=== PATIENT | female | born 1985 | race African-American/Black ===

== ENCOUNTER 2017-11-20 17:21 | Emergency (ER) | payer OTHER ==
[2017-11-20 17:28] VITALS: BP 107/55; PULSE 88; TEMP 98.1; BMI 19.0
--- NOTE | 2017-11-20 18:02 | PDOC ---
History of Present Illness - General Chief Complaint: Abscess Boil Stated Complaint: VAGINAL CYST 28WKS PREG, NO VAG BLEED Time Seen by Provider: 11/20/17 17:34 History Source: Patient Exam Limitations: No Limitations - History of Present Illness Initial Comments: 11/20/17 17:57 32-year-old female currently 28 weeks presents to the ED with complaints of left labial mass. Patient states has had similar abscesses in the past secondary to shaving but denies shaving recently. Patient has no complaints of fever, vaginal discharge, abdominal pain, or vaginal bleeding. Timing/Duration: getting worse Severity: mild Associated Symptoms: reports: denies symptoms Past History - Past Medical History Allergies/Adverse Reactions: Allergies Allergy/AdvReac Type Severity Reaction Status Date / Time levetiracetam [From [facility]] AdvReac Intermediate Verified 11/20/17 17:27 Home Medications: Ambulatory Orders OXcarbazepine [Trileptal] 200 mg PO BID 08/07/15 Anemia: No Asthma: No Cancer: No Cardiac Disorders: No CVA: No COPD: No CHF: No Dementia: No Diabetes: No GI Disorders: No Disorders: No HTN: No Hypercholesterolemia: No Liver Disease: No Seizures: Yes Thyroid Disease: No - Surgical History Abdominal Surgery: No Appendectomy: No Cardiac Surgery: No - Reproductive History (#): 3 Para: 2 Cervical CA: No Dysfunctional Uterine Bleeding: No Ectopic : No Endometrial CA: No Polycystic Ovaries: No Therapeutic (s) & number: No Tubal Ligation: No Spontaneous : 0 - Immunization History Immunization Up to Date: Yes - Suicide/Smoking/Psychosocial Hx Smoking Status: No Smoking History: Never smoked Number of Cigarettes Smoked Daily: 0 Information on smoking cessation initiated: No Hx Alcohol Use: No Drug/Substance Use Hx: No Substance Use Type: Alcohol Hx Substance Use Treatment: No Patient Lives Alone: No Lives with/in: spouse/SO Review of Systems - Review of Systems Able to Perform ROS?: Yes Constitutional: No: Symptoms Reported Musculoskeletal: No: Symptoms Reported Integumentary: Yes: Lumps *Physical Exam - Vital Signs Last Vital Signs Temp Pulse Resp BP Pulse Ox 98.1 F 88 18 107/55 97 11/20/17 17:24 11/20/17 17:24 11/20/17 17:24 11/20/17 17:24 11/20/17 17:24 - Physical Exam General Appearance: Yes: Nourished, Appropriately Dressed. No: Apparent Distress Female Pelvic Exam: positive: other (noted fluctuant tender left labial abscess) . negative: discharge, vaginal bleeding Gastrointestinal/Abdominal: negative: Tenderness Procedures - Incision and Drainage I&D Site: Left: Other Betadine cleansed: Yes Anesthesia: 1% Lidocaine Blade Size: 11 Attempts: 1 Plain Packing: No Complications: none Progress: 11/20/17 18:05 Patient drained a approximately 5 mL of purulent drainage without manual expression. Patient drained approximately 2 mL of purulent drainage with expression. Medical Decision Making - Medical Decision Making 11/20/17 18:04 Patient here for left labial abscess. Patient had incision and drainage done without difficulty using an 11 blade. Wound culture was collected. Patient to return in 72 hours for wound check or sooner if symptoms worsen. Patient also given supportive care instructions on discharge *DC/Admit/Observation/Transfer Diagnosis at time of Disposition: Abscess of labia - Discharge Dispostion Disposition: HOME Condition at time of disposition: Good - Referrals Referrals: Pauline Ku MD [Primary Care Provider] - - Patient Instructions Printed Discharge Instructions: DI for Incision and Drainage of a Skin Abscess Additional Instructions: Please apply warm soaks to the affected area 4 times a day 15 minutes. Please return here in 72 hours for wound check or sooner if symptoms worsen prior to your follow-up. - Post Discharge Activity
--- NOTE | 2017-11-23 07:46 | PDOC ---
Patient Follow-up (Call Back) - Post ED Follow - Up Condition at time of discharge: Good Disposition at time of original discharge: HOME Reason for Call Back: Abnwl. Microbiology (Preliminary wound culture shows lactose fermenting negative bacilli quantity very rare, organism to staphylococcal species quantity rare and group D strep or enterococcus quantity rare. Patient currently 28 weeks and on Trileptal for seizure. Patient on no antibiotics and will await final report.)
--- NOTE | 2017-11-24 10:25 | PDOC ---
Patient Follow-up (Call Back) - Post ED Follow - Up Condition at time of discharge: Good Disposition at time of original discharge: HOME Reason for Call Back: Abnwl. Microbiology (+ucx sen to keflex, bactrim and levaquin, macrobid not inclued on sensitivity Pt >28 weeks and not on abx Called number on chart but phone rings without answer)
== END 2017-11-20 18:39 | disposition home or self-care (01) ==
LOC: JERFT 17:21
PROC: 0U9M0ZZ Drainage of Vulva, Open Approach (ICD-10-PCS; principal; 2017-11-20)
DX: O23.593 Infection of other part of genital tract in pregnancy, third trimester (principal); N76.4 Abscess of vulva; Z3A.28 28 weeks gestation of pregnancy
CPT/HCPCS: 87070; 87186; 87205; 99281-25

== ENCOUNTER 2020-08-23 04:11 | Emergency (ER) | payer OTHER ==
--- NOTE | 2020-08-23 04:18 | PDOC ---
History of Present Illness - General Stated Complaint: FEELING ANXIOUS Time Seen by Provider: 08/23/20 04:17 - History of Present Illness Initial Comments: 08/23/20 04:20 35 year old female with significant past medical history of seizure disorder (noncompliant on Oxacarbazepine). BIBA to the ED with seizure feeling. Earlier of the night, patient felt like she was having a seizure, went to [place] for a visit. There they evaluated her and sent her home with dx of anxiety. Patient d/c home; however, she didn't felt any better, had numbness on the extremities, called 911. That's why she is here. On the way to [facility], vital sign was 140/90 to 110/80s, SpO2 of 100 on Nasal canula oxygen, hemodynamically stable the entire time. At the ED, patient denies chest pain, lightheadedness, nausea, vomiting, abd ominal pain. She did have a couple episode of involuntary legs shaking lasting about 30 seconds. Allergies: levetiracetam Social History: No alcohol, tobacco, or drug use reported. PCP: Dr. Cl [place] GENERAL/CONSTITUTIONAL: No fever or chills. No weakness. HEAD, EYES, EARS, NOSE AND THROAT: No change in vision. No ear pain or discharge. No sore throat. CARDIOVASCULAR: No chest pain or shortness of breath RESPIRATORY: No cough, wheezing, or hemoptysis. GASTROINTESTINAL: No nausea, vomiting, diarrhea or constipation. GENITOURINARY: No dysuria, frequency, or change in urination. MUSCULOSKELETAL: No joint or muscle swelling or pain. No neck or back pain. SKIN: No rash NEUROLOGIC: No headache, vertigo, loss of consciousness, or change in strength/sensation. ENDOCRINE: No increased thirst. No abnormal weight change HEMATOLOGIC/LYMPHATIC: No anemia, easy bleeding, or history of blood clots. ALLERGIC/IMMUNOLOGIC: No hives or skin allergy. PE GENERAL: Awake, alert, and fully oriented, in no acute distress, flat effect. HEAD: No signs of trauma, normocephalic, atraumatic EYES: PERRLA, EOMI, sclera anicteric, conjunctiva clear ENT: Auricles normal inspection, hearing grossly normal, nares patent, oropharynx clear without exudates. Moist mucosa NECK: Normal ROM, supple, no lymphadenopathy, JVD, or masses LUNGS: No distress, speaks full sentences, clear to auscultation bilaterally HEART: Regular rate and rhythm, normal S1 and S2, no murmurs, rubs or gallops, peripheral pulses normal and equal bilaterally. ABDOMEN: Soft, nontender, normoactive bowel sounds. No guarding, no rebound. No masses EXTREMITIES : Normal inspection, Normal range of motion, no edema. No clubbing or cyanosis. NEUROLOGICAL: Cranial nerves II through XII grossly intact. Normal speech, nor mal gait, no focal sensorimotor deficits SKIN: Warm, Dry, normal turgor, no rashes or lesions noted 08/23/20 04:29 08/23/20 04:38 Past History - Medical History Allergies/Adverse Reactions: Allergies Allergy/AdvReac Type Severity Reaction Status Date / Time levetiracetam [From [facility] [place]] AdvReac Intermediate Verified 08/23/20 04:20 Home Medications: Ambulatory Orders OXcarbazepine [Trileptal] 200 mg PO BID 08/07/15 Anemia: No Asthma: No Cancer: No Cardiac Disorders: No CVA: No COPD: No CHF: No Dementia: No Diabetes: No GI Disorders: No Disorders: No HTN: No Hypercholesterolemia: No Liver Disease: No Seizures: Yes Thyroid Disease: No - Surgical History Abdominal Surgery: No Appendectomy: No Cardiac Surgery: No - Reproductive History (#): 3 Para: 2 Cervical CA: No Dysfunctional Uterine Bleeding: No Ectopic : No Endometrial CA: No Polycystic Ovaries: No Therapeutic (s) & number: No Tubal Ligation: No Spontaneous : 0 - Immunization History Immunization Up to Date: Yes - Psycho-Social/Smoking History Smoking Status: No Smoking History: Never smoked Number of Cigarettes Smoked Daily: 0 ED Treatment Course - LABORATORY CBC & Chemistry Diagram: 08/23/20 05:00 08/23/20 05:00 Medical Decision Making - Medical Decision Making 08/23/20 04:47 35F with hx of seizure (noncompliant to trileptal) presented here with anxiety issue and numbness of the extremities. Will do basic lab work, test Will give one dose of trileptal 08/23/20 05:58 EKG showed sinus rhtym with premature supraventricular complex, vent rate 79, QTc 405. 08/23/20 06:49 Blood work came back unremarkable. Stable to discharge and follow up with PCP and neurologist. Discharge - Discharge Information Problems reviewed: Yes Clinical Impression/Diagnosis: Pseudoseizure, Anxiety Condition: Good Disposition: HOME - Follow up/Referral Referrals: Pauline Ku MD [Primary Care Provider] - Zeferino Villarreal MD [Staff Physician] - - Patient Discharge Instructions Patient Printed Discharge Instructions: DI for Psychogenic Nonepileptic Seizure s Additional Instructions: You were seen in the ED for complaints of numbness and anxiety In the ED you were evaluated with bloodwork and physical exam. Your results were negative There does not appear to be an acute need for immediate hospitalization. You are advised to follow up with your Primary Care Physician and neurologist within 1 week. You were given a referral to see a neurologist Please continue to take your trileptal medication. Return to the ED immediately if you experience worsening headache, seizure, or new symptoms. - Post Discharge Activity
[2020-08-23 04:24] VITALS: BMI 20.9
[2020-08-23] MEDS ORDERED: OXcarbazepine 300 MG/5 ML UNIT DOSE CUPS PO ONE (04:47)
--- OUTSIDE RECORDS SUMMARY | 2020-08-23 05:10 | XMS ---
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 <content [facility] gravity of 5 styleCode="Jj Womacks Urine by Test d">Urine Medical strip Specific Center [place] </content>1.02 5 <content styleCode="Ginny lics"> (1.015-1.025 )</content> Hemoglobin NEGATIVE <content [facility] [Presence] in styleCode="Jj Izaguirre Urine by Test d">Urine Blood Medical strip </content>NEGA Center TIVE <content styleCode="Ginny lics"> (NEGATIVE )</content> Protein NEGATIVE <content [facility] [Mass/volume] styleCode="Jj Womacks in Urine by d">Urine Medical Test strip Protein Center </content>TRAC E MG/DL<content styleCode="Ginny lics"> (NEGATIVE MG/DL)</conten t> UNK 0-3 <content Saint styleCode="Jj Zina d">Urine Red Medical Blood Cell Center </content>0-3 HPF<content styleCode="Ginny lics"> (0-3 HPF)</content> UNK 0-3 <content Saint styleCode="Jj Zina d">Urine White Medical Blood Cell Center </content>0-3 HPF<content styleCode="Ginny lics"> (0-3 HPF)</content> Urobilinogen 0.2-1.0 <content [facility] [Units/volume] styleCode="Jj Izaguirre in Urine by d">Urine Medical Test strip Urobilinogen Center </content>0.2 MG/DL<content styleCode="Ginny lics"> (0.2-1.0 MG/DL)</conten t> Leukocyte NEGATIVE <content [facility] esterase styleCode="Jj Womacks [Presence] in d">Urine Medical Urine by Test Leukocyte Center strip </content>NEGA TIVE <content styleCode="Ginny lics"> (NEGATIVE )</content> Nitrite NEGATIVE <content [facility] [Presence] in styleCode="Jj Womacks Urine by Test d">Urine Medical strip Nitrite Center </content>NEGA TIVE <content styleCode="Ginny lics"> (NEGATIVE )</content> UNK NEGATIVE <content Saint styleCode="Jj Zina d">Urine Medical Bacteria Center </content>FEW HPF<content styleCode="Ginny lics"> (NEGATIVE HPF)</content> UNK NONE SEEN <content Saint styleCode="Jj Zina d">Epithelial Medical Cell Center </content>2-5 HPF<content styleCode="Ginny lics"> (NONE SEEN HPF)</content> ID Date Data Source CHMROUTINECCDA.[id number] 11/13/2019 06:50:00 AM [facility] -0500 Name Value Range Interpretation Description Data Sup porting Code Source(s) Document(s ) Cannabinoids <content [facility] [Presence] in styleCode="Jj Izaguirre Urine by Screen d">Cannabinoid Medical method >50 ng/mL s Center </content>NEGA TIVE NG/ML (Reference Range: not available)<br/ > ID Date Data Source HematologyRou.[id number] 11/13/2019 06:25:00 AM [facility] 0500 Name Value Range Interpretation Description Data Sup porting Code Source(s) Document(s ) Hematocrit 36.0-46. Below low normal <content Saint [Volume 0 styleCode="Bold Zina Fraction] of ">Hematocrit Medical Blood by </content>31.2 Center Automated count % L<content styleCode="Ital ics"> (36.0-46.0 %)</content> Erythrocyte mean 80.0-100 <content [facility] corpuscular .0 styleCode="Bold Zina volume [Entitic ">Mean Medical volume] by Corpuscular Center Automated count Volume </content>85.7 FL<content styleCode="Ital ics"> (80.0-100.0 FL)</content> Hemoglobin 12.3-16. Below low normal <content [facility] [Mass/volume] in 0 styleCode="Bold Zina Blood ">Hemoglobin Medical </content>9.8 Center G/DL L<content styleCode="Ital ics"> (12.3-16.0 G/DL)</content> Leukocytes 4.4-11.0 Below low normal <content [facility] [#/volume] in styleCode="Bold Zina Blood by ">White Blood Medical Automated count Cell Count Center </content>4.19 KCUMM L<content styleCode="Ital ics"> (4.4-11.0 KCUMM)</content > Erythrocytes 4.0-5.1 Below low normal <content [facility] [#/volume] in styleCode="Bold Zina Blood by ">Red Blood Medical Automated count Cell Count Center </content>3.64 MCUMM L<content styleCode="Ital ics"> (4.0-5.1 MCUMM)</content > Platelet mean 8.0-11.0 <content [facility] volume [Entitic styleCode="Bold Zina volume] in Blood ">Mean Platelet Medical by Automated Volume Center count </content>10.2 FL<content styleCode="Ital ics"> (8.0-11.0 FL)</content> Erythrocyte mean 26.0-34. <content [facility] corpuscular 0 styleCode="Bold Zina hemoglobin ">Mean Medical [Entitic mass] Corposcular Center by Automated Hemoglobin count </content>26.9 PG<content styleCode="Ital ics"> (26.0-34.0 PG)</content> Platelets 130-400 <content [facility] [#/volume] in styleCode="Bold Zina Blood by ">Platelet Medical Automated count Count Center </content>266 KCUMM<content styleCode="Ital ics"> (130-400 KCUMM)</content > Erythrocyte 11.5-14. Above high <content [facility] distribution 5 normal styleCode="Bold Zina width [Ratio] by ">Red Cell Medical Automated count Distribution Center Width </content>15.9 % H<content styleCode="Ital ics"> (11.5-14.5 %)</content> Erythrocyte mean 32.0-37. Below low normal <content [facility] corpuscular 0 styleCode="Bold Zina hemoglobin ">Mean Corpus. Medical concentration Hgb Center [Mass/volume] by Concentration Automated count (MCHC) </content>31.4 G/DL L<content styleCode="Ital ics"> (32.0-37.0 G/DL)</content> UNK 0 <content Saint styleCode="Bold Zina ">Nucleated Red Medical Blood Cell Center </content>0.0 /100<content styleCode="Ital ics"> (0 /100)</content> UNK 0.0 <content Saint styleCode="Bold Zina ">Nucleated Red Medical Blood Cell Center Count </content>0.00 KCUMM<content styleCode="Ital ics"> (0.0 KCUMM)</content > ID Date Data Source GFR(Creatinine).[id number] 11/13/2019 06:25:00 AM AUDI [facility] 0-0500 Name Value Range Interpretation Code Description Data Yesica rce(s) Supporting Document(s ) UNK > 60 <content [facility] styleCode="Bold"> Medical Cent er EGFR </content>149 GFR<content styleCode="Italic s"> (> 60 GFR)</content> ID Date Data Source BMP.[id number] 11/13/2019 06:25:00 AM EST [facility] Name Value Range Interpretation Description Data Sup porting Code Source(s) Document(s ) Potassium 3.5-5.3 <content [facility] [Moles/volume] styleCode="Jj Zina in Serum or d">Potassium Medical Plasma </content>4.2 Center MEQ/L<content styleCode="Ginny lics"> (3.5-5.3 MEQ/L)</conten t> Sodium 137-145 <content [facility] [Moles/volume] styleCode="Jj Zina in Serum or d">Sodium Medical Plasma </content>137 Center MEQ/L<content styleCode="Ginny lics"> (137-145 MEQ/L)</conten t> Chloride 98-107 <content [facility] [Moles/volume] styleCode="Jj Zina in Serum or d">Chloride Medical Plasma </content>101 Center MEQ/L<content styleCode="Ginny lics"> (98-107 MEQ/L)</conten t> UNK 7-17 <content Saint styleCode="Jj Zina d">BUN Medical </content>13 Center MG/DL<content styleCode="Ginny lics"> (7-17 MG/DL)</conten t> Creatinine 0.5-1.3 <content [facility] [Mass/volume] styleCode="Jj Zina in Serum or d">Creatinine Medical Plasma </content>0.6 Center MG/DL<content styleCode="Ginny lics"> (0.5-1.3 MG/DL)</conten t> Glucose 74-106 <content [facility] [Mass/volume] styleCode="Jj Zina in Serum or d">Glucose Medical Plasma </content>102 Center MG/DL<content styleCode="Ginny lics"> (74-106 MG/DL)</conten t> Calcium 8.4-10.2 <content [facility] [Mass/volume] styleCode="Jj Zina in Serum or d">Calcium Medical Plasma </content>10.1 Center MG/DL<content styleCode="Ginny lics"> (8.4-10.2 MG/DL)</conten t> Carbon 22-30 <content [facility] dioxide, total styleCode="Jj Zina [Moles/volume] d">Carbon Medical in Serum or Dioxide Center Plasma </content>28 MEQ/L<content styleCode="Ginny lics"> (22-30 MEQ/L)</conten t> UNK > 60 <content [facility] styleCode="Jj Zina d">EGFR Medical </content>149 Center GFR<content styleCode="Ginny lics"> (> 60 GFR)</content> ID Date Data Source HematologyRou.[id number] 10/25/2019 04:55:00 AM AUDI [facility] 0500 Name Value Range Interpretation Description Data Sup porting Code Source(s) Document(s ) Leukocytes 4.4-11.0 <content [facility] [#/volume] in styleCode="Bold Zina Blood by ">White Blood Medical Automated count Cell Count Center </content>5.77 KCUMM<content styleCode="Ital ics"> (4.4-11.0 KCUMM)</content > Erythrocytes 4.0-5.1 <content [facility] [#/volume] in styleCode="Bold Zina Blood by ">Red Blood Medical Automated count Cell Count Center </content>4.21 MCUMM<content styleCode="Ital ics"> (4.0-5.1 MCUMM)</content > Hemoglobin 12.3-16. Below low normal <content [facility] [Mass/volume] in 0 styleCode="Bold Zina Blood ">Hemoglobin Medical </content>11.3 Center G/DL L<content styleCode="Ital ics"> (12.3-16.0 G/DL)</content> Hematocrit 36.0-46. <content [facility] [Volume 0 styleCode="Bold Zina Fraction] of ">Hematocrit Medical Blood by </content>36.7 Center Automated count %<content styleCode="Ital ics"> (36.0-46.0 %)</content> Erythrocyte mean 32.0-37. Below low normal <content [facility] corpuscular 0 styleCode="Bold Zina hemoglobin ">Mean Corpus. Medical concentration Hgb Center [Mass/volume] by Concentration Automated count (MCHC) </content>30.8 G/DL L<content styleCode="Ital ics"> (32.0-37.0 G/DL)</content> Erythrocyte mean 26.0-34. <content [facility] corpuscular 0 styleCode="Bold Zina hemoglobin ">Mean Medical [Entitic mass] Corposcular Center by Automated Hemoglobin count </content>26.8 PG<content styleCode="Ital ics"> (26.0-34.0 PG)</content> Erythrocyte 11.5-14. Above high <content [facility] distribution 5 normal styleCode="Bold Zina width [Ratio] by ">Red Cell Medical Automated count Distribution Center Width </content>16.7 % H<content styleCode="Ital ics"> (11.5-14.5 %)</content> Erythrocyte mean 80.0-100 <content [facility] corpuscular .0 styleCode="Bold Zina volume [Entitic ">Mean Medical volume] by Corpuscular Center Automated count Volume </content>87.2 FL<content styleCode="Ital ics"> (80.0-100.0 FL)</content> Platelet mean 8.0-11.0 <content [facility] volume [Entitic styleCode="Bold Zina volume] in Blood ">Mean Platelet Medical by Automated Volume Center count </content>9.6 FL<content styleCode="Ital ics"> (8.0-11.0 FL)</content> UNK 0 <content Saint styleCode="Bold Zina ">Nucleated Red Medical Blood Cell Center </content>0.0 /100<content styleCode="Ital ics"> (0 /100)</content> Platelets 130-400 <content [facility] [#/volume] in styleCode="Bold Zina Blood by ">Platelet Medical Automated count Count Center </content>290 KCUMM<content styleCode="Ital ics"> (130-400 KCUMM)</content > UNK 0.0 <content [facility] styleCode="Bold Zina ">Nucleated Red Medical Blood Cell Center Count </content>0.00 KCUMM<content styleCode="Ital ics"> (0.0 KCUMM)</content > ID Date Data Source GFR(Creatinine).[id number] 10/25/2019 04:55:00 AM EST [facility] 0-0500 Name Value Range Interpretation Code Description Data Yesica rce(s) Supporting Document(s ) UNK > 60 <content [facility] styleCode="Bold"> Medical Cent er EGFR </content>125 GFR<content styleCode="Italic s"> (> 60 GFR)</content> ID Date Data Source [facility].[id number] 10/25/2019 04:55:00 AM EST [facility] Name Value Range Interpretation Description Data Sup porting Code Source(s) Document(s ) Sodium 137-145 <content [facility] [Moles/volume] styleCode="Jj Womacks in Serum or d">Sodium Medical Plasma </content>140 Center MEQ/L<content styleCode="Ginny lics"> (137-145 MEQ/L)</conten t> Carbon 22-30 <content [facility] dioxide, total styleCode="Jj Zina [Moles/volume] d">Carbon Medical in Serum or Dioxide Center Plasma </content>27 MEQ/L<content styleCode="Ginny lics"> (22-30 MEQ/L)</conten t> Chloride 98-107 <content [facility] [Moles/volume] styleCode="Jj Zina in Serum or d">Chloride Medical Plasma </content>102 Center MEQ/L<content styleCode="Ginny lics"> (98-107 MEQ/L)</conten t> Potassium 3.5-5.3 <content [facility] [Moles/volume] styleCode="Jj Zina in Serum or d">Potassium Medical Plasma </content>4.5 Center MEQ/L<content styleCode="Ginny lics"> (3.5-5.3 MEQ/L)</conten t> Creatinine 0.5-1.3 <content [facility] [Mass/volume] styleCode="Jj Zina in Serum or d">Creatinine Medical Plasma </content>0.7 Center MG/DL<content styleCode="Ginny lics"> (0.5-1.3 MG/DL)</conten t> Glucose 74-106 Above high normal <content [facility] [Mass/volume] styleCode="Jj Izaguirre in Serum or d">Glucose Medical Plasma </content>109 Center MG/DL H<content styleCode="Ginny lics"> (74-106 MG/DL)</conten t> UNK 7-17 <content Saint styleCode="Jj Izaguirre d">BUN Medical </content>15 Center MG/DL<content styleCode="Ginny lics"> (7-17 MG/DL)</conten t> UNK > 60 <content Saint styleCode="Jj Womacks d">EGFR Medical </content>125 Center GFR<content styleCode="Ginny lics"> (> 60 GFR)</content> Calcium 8.4-10.2 Above high normal <content [facility] [Mass/volume] styleCode="Jj Izaguirre in Serum or d">Calcium Medical Plasma </content>10.6 Center MG/DL H<content styleCode="Ginny lics"> (8.4-10.2 MG/DL)</conten t> ID Date Data Source MROUTINECCDA.[id number] 10/08/2019 03:00:00 AM [facility] -0500 Name Value Range Interpretation Description Data Sup porting Code Source(s) Document(s ) Cannabinoids <content [facility] [Presence] in styleCode="Jj Izaguirre Urine by Screen d">Cannabinoid Medical method >50 ng/mL s Center </content>NEGA TIVE NG/ML (Reference Range: not available)<br/ > ID Date Data Source Liver 10/08/2019 01:50:00 AM [facility] Profile.[id number] Name Value Range Interpretation Description Data Sup porting Code Source(s) Document(s ) Alanine 7-30 <content [facility] aminotransferase styleCode="Bold"> Han hs [Enzymatic Alanine Medical activity/volume] Aminotransferase Center in Serum or Plasma (ALT) </content>23 IU/L<content styleCode="Italic s"> (7-30 IU/L)</content> Aspartate 14-36 <content [facility] aminotransferase styleCode="Bold"> Han hs [Enzymatic Aspartate Medical activity/volume] Aminotransferase Center in Serum or Plasma (AST) </content>33 IU/L<content styleCode="Italic s"> (14-36 IU/L)</content> Albumin 3.5-5.0 <content [facility] [Mass/volume] in styleCode="Bold"> Han hs Serum or Plasma Albumin Medical </content>4.5 Center G/DL<content styleCode="Italic s"> (3.5-5.0 G/DL)</content> UNK 0.0-0.3 <content Saint styleCode="Bold"> Zina Bilirubin, Direct Medical </content>< 0.2 Center MG/DL<content styleCode="Italic s"> (0.0-0.3 MG/DL)</content> Bilirubin.total 0.2-1.3 <content [facility] [Mass/volume] in styleCode="Bold"> Han hs Serum or Plasma Bilirubin Total Medical </content>0.4 Center MG/DL<content styleCode="Italic s"> (0.2-1.3 MG/DL)</content> Alkaline 38-126 <content [facility] phosphatase styleCode="Bold"> Zina [Enzymatic Alkaline Medical activity/volume] Phosphatase (ALP) Cente r in Serum or Plasma </content>66 IU/L<content styleCode="Italic s"> (38-126 IU/L)</content> ID Date Data Source HematologyRou.[id number] 10/08/2019 01:50:00 AM [facility] 0500 Name Value Range Interpretation Description Data Sup porting Code Source(s) Document(s ) Erythrocytes 4.0-5.1 Below low normal <content [facility] [#/volume] in styleCode="Bold Zina Blood by ">Red Blood Medical Automated count Cell Count Center </content>3.75 MCUMM L<content styleCode="Ital ics"> (4.0-5.1 MCUMM)</content > Leukocytes 4.4-11.0 <content [facility] [#/volume] in styleCode="Bold Zina Blood by ">White Blood Medical Automated count Cell Count Center </content>7.07 KCUMM<content styleCode="Ital ics"> (4.4-11.0 KCUMM)</content > Hemoglobin 12.3-16. Below low normal <content [facility] [Mass/volume] in 0 styleCode="Bold Zina Blood ">Hemoglobin Medical </content>10.2 Center G/DL L<content styleCode="Ital ics"> (12.3-16.0 G/DL)</content> Hematocrit 36.0-46. Below low normal <content [facility] [Volume 0 styleCode="Bold Zina Fraction] of ">Hematocrit Medical Blood by </content>33.0 Center Automated count % L<content styleCode="Ital ics"> (36.0-46.0 %)</content> Erythrocyte mean 32.0-37. Below low normal <content [facility] corpuscular 0 styleCode="Bold Zina hemoglobin ">Mean Corpus. Medical concentration Hgb Center [Mass/volume] by Concentration Automated count (MCHC) </content>30.9 G/DL L<content styleCode="Ital ics"> (32.0-37.0 G/DL)</content> Erythrocyte mean 80.0-100 <content [facility] corpuscular .0 styleCode="Bold Zina volume [Entitic ">Mean Medical volume] by Corpuscular Center Automated count Volume </content>88.0 FL<content styleCode="Ital ics"> (80.0-100.0 FL)</content> Erythrocyte mean 26.0-34. <content [facility] corpuscular 0 styleCode="Bold Zina hemoglobin ">Mean Medical [Entitic mass] Corposcular Center by Automated Hemoglobin count </content>27.2 PG<content styleCode="Ital ics"> (26.0-34.0 PG)</content> Platelet mean 8.0-11.0 <content [facility] volume [Entitic styleCode="Bold Zina volume] in Blood ">Mean Platelet Medical by Automated Volume Center count </content>10.2 FL<content styleCode="Ital ics"> (8.0-11.0 FL)</content> Platelets 130-400 <content [facility] [#/volume] in styleCode="Bold Zina Blood by ">Platelet Medical Automated count Count Center </content>285 KCUMM<content styleCode="Ital ics"> (130-400 KCUMM)</content > UNK 0.0 <content Saint styleCode="Bold Zina ">Nucleated Red Medical Blood Cell Center Count </content>0.00 KCUMM<content styleCode="Ital ics"> (0.0 KCUMM)</content > UNK 0 <content Saint styleCode="Bold Zina ">Nucleated Red Medical Blood Cell Center </content>0.0 /100<content styleCode="Ital ics"> (0 /100)</content> Erythrocyte 11.5-14. Above high <content [facility] distribution 5 normal styleCode="Sera Izaguirre width [Ratio] by ">Red Cell Medical Automated count Distribution Center Width </content>16.9 % H<content styleCode="Ital ics"> (11.5-14.5 %)</content> ID Date Data Source GFR(Creatinine).[id number] 10/08/2019 01:50:00 AM AUD[facility] 0-0500 Name Value Range Interpretation Code Description Data Yesica rce(s) Supporting Document(s ) UNK > 60 <content [facility] styleCode="Bold"> Medical Cent er EGFR </content>125 GFR<content styleCode="Italic s"> (> 60 GFR)</content> ID Date Data Source BMP.[id number] 10/08/2019 01:50:00 AM EST [facility] Name Value Range Interpretation Description Data Sup porting Code Source(s) Document(s ) Sodium 137-145 <content [facility] [Moles/volume] in styleCode="Bold"> [facility] Serum or Plasma Sodium Medical </content>137 Center MEQ/L<content styleCode="Italic s"> (137-145 MEQ/L)</content> Chloride 98-107 <content [facility] [Moles/volume] in styleCode="Bold"> [facility] Serum or Plasma Chloride Medical </content>103 Center MEQ/L<content styleCode="Italic s"> (98-107 MEQ/L)</content> Carbon dioxide, 22-30 <content [facility] total styleCode="Bold"> Zina [Moles/volume] in Carbon Dioxide Medical Serum or Plasma </content>22 Center MEQ/L<content styleCode="Italic s"> (22-30 MEQ/L)</content> Potassium <content [facility] [Moles/volume] in styleCode="Bold"> [facility] Serum or Plasma Potassium Medical </content>Test Center not performed. MEQ/L (Reference Range: not available)
Glucose 74-106 <content [facility] [Mass/volume] in styleCode="Bold"> Han hs Serum or Plasma Glucose Medical </content>98 Center MG/DL<content styleCode="Italic s"> (74-106 MG/DL)</content> Calcium 8.4-10. <content [facility] [Mass/volume] in 2 styleCode="Bold"> Han hs Serum or Plasma Calcium Medical </content>10.1 Center MG/DL<content styleCode="Italic s"> (8.4-10.2 MG/DL)</content> Creatinine 0.5-1.3 <content [facility] [Mass/volume] in styleCode="Bold"> Han hs Serum or Plasma Creatinine Medical </content>0.7 Center MG/DL<content styleCode="Italic s"> (0.5-1.3 MG/DL)</content> UNK 7-17 <content [facility] styleCode="Bold"> Zina BUN </content>16 Medical MG/DL<content Center styleCode="Italic s"> (7-17 MG/DL)</content> UNK > 60 <content [facility] styleCode="Bold"> Zina EGFR Medical </content>125 Center GFR<content styleCode="Italic s"> (> 60 GFR)</content> Bilirubin.total 0.2-1.3 <content [facility] [Mass/volume] in styleCode="Bold"> Han hs Serum or Plasma Bilirubin Total Medical </content>0.4 Center MG/DL<content styleCode="Italic s"> (0.2-1.3 MG/DL)</content> Alanine 7-30 <content [facility] aminotransferase styleCode="Bold"> Han hs [Enzymatic Alanine Medical activity/volume] Aminotransferase Center in Serum or Plasma (ALT) </content>23 IU/L<content styleCode="Italic s"> (7-30 IU/L)</content> Alkaline 38-126 <content [facility] phosphatase styleCode="Bold"> Zina [Enzymatic Alkaline Medical activity/volume] Phosphatase (ALP) Cente r in Serum or Plasma </content>66 IU/L<content styleCode="Italic s"> (38-126 IU/L)</content> Aspartate 14-36 <content [facility] aminotransferase styleCode="Bold"> Han hs [Enzymatic Aspartate Medical activity/volume] Aminotransferase Center in Serum or Plasma (AST) </content>33 IU/L<content styleCode="Italic s"> (14-36 IU/L)</content> Albumin 3.5-5.0 <content [facility] [Mass/volume] in styleCode="Bold"> Han hs Serum or Plasma Albumin Medical </content>4.5 Center G/DL<content styleCode="Italic s"> (3.5-5.0 G/DL)</content> ID Date Data Source HematologyRou.[id number] 09/23/2019 02:23:00 AM EDT [facility] 0400 Name Value Range Interpretation Description Data Sup porting Code Source(s) Document(s ) Erythrocytes 4.0-5.1 Below low normal <content [facility] [#/volume] in styleCode="Bold Zina Blood by ">Red Blood Medical Automated count Cell Count Center </content>3.52 MCUMM L<content styleCode="Ital ics"> (4.0-5.1 MCUMM)</content > Leukocytes 4.4-11.0 <content [facility] [#/volume] in styleCode="Bold Zina Blood by ">White Blood Medical Automated count Cell Count Center </content>6.42 KCUMM<content styleCode="Ital ics"> (4.4-11.0 KCUMM)</content > Hematocrit 36.0-46. Below low normal <content [facility] [Volume 0 styleCode="Bold Zina Fraction] of ">Hematocrit Medical Blood by </content>30.7 Center Automated count % L<content styleCode="Ital ics"> (36.0-46.0 %)</content> Hemoglobin 12.3-16. Below low normal <content [facility] [Mass/volume] in 0 styleCode="Bold Zina Blood ">Hemoglobin Medical </content>9.6 Center G/DL L<content styleCode="Ital ics"> (12.3-16.0 G/DL)</content> Erythrocyte mean 26.0-34. <content [facility] corpuscular 0 styleCode="Bold Zina hemoglobin ">Mean Medical [Entitic mass] Corposcular Center by Automated Hemoglobin count </content>27.3 PG<content styleCode="Ital ics"> (26.0-34.0 PG)</content> Erythrocyte mean 80.0-100 <content [facility] corpuscular .0 styleCode="Bold Zina volume [Entitic ">Mean Medical volume] by Corpuscular Center Automated count Volume </content>87.2 FL<content styleCode="Ital ics"> (80.0-100.0 FL)</content> Erythrocyte mean 32.0-37. Below low normal <content [facility] corpuscular 0 styleCode="Bold Zina hemoglobin ">Mean Corpus. Medical concentration Hgb Center [Mass/volume] by Concentration Automated count (MCHC) </content>31.3 G/DL L<content styleCode="Ital ics"> (32.0-37.0 G/DL)</content> Platelet mean 8.0-11.0 <content [facility] volume [Entitic styleCode="Bold Zina volume] in Blood ">Mean Platelet Medical by Automated Volume Center count </content>9.9 FL<content styleCode="Ital ics"> (8.0-11.0 FL)</content> Platelets 130-400 <content [facility] [#/volume] in styleCode="Bold Zina Blood by ">Platelet Medical Automated count Count Center </content>245 KCUMM<content styleCode="Ital ics"> (130-400 KCUMM)</content > UNK 0.0 <content Saint styleCode="Bold Zina ">Nucleated Red Medical Blood Cell Center Count </content>0.00 KCUMM<content styleCode="Ital ics"> (0.0 KCUMM)</content > UNK 0 <content Saint styleCode="Bold Zina ">Nucleated Red Medical Blood Cell Center </content>0.0 /100<content styleCode="Ital ics"> (0 /100)</content> Erythrocyte 11.5-14. Above high <content [facility] distribution 5 normal styleCode="Bold Zina width [Ratio] by ">Red Cell Medical Automated count Distribution Center Width </content>17.1 % H<content styleCode="Ital ics"> (11.5-14.5 %)</content> ID Date Data Source GFR(Creatinine).[id number] 09/23/2019 02:23:00 AM EDT [facility] 0-0400 Name Value Range Interpretation Code Description Data Yesica rce(s) Supporting Document(s ) UNK > 60 <content [facility] styleCode="Bold"> Medical Cent er EGFR </content>125 GFR<content styleCode="Italic s"> (> 60 GFR)</content> ID Date Data Source [facility].[id number] 09/23/2019 02:23:00 AM EDT [facility] Center Name Value Range Interpretation Description Data Sup porting Code Source(s) Document(s ) Sodium 137-145 <content [facility] [Moles/volume] styleCode="Jj Zina in Serum or d">Sodium Medical Plasma </content>139 Center MEQ/L<content styleCode="Ginny lics"> (137-145 MEQ/L)</conten t> Potassium 3.5-5.3 <content [facility] [Moles/volume] styleCode="Jj Zina in Serum or d">Potassium Medical Plasma </content>4.3 Center MEQ/L<content styleCode="Ginny lics"> (3.5-5.3 MEQ/L)</conten t> Creatinine 0.5-1.3 <content [facility] [Mass/volume] styleCode="Jj Zina in Serum or d">Creatinine Medical Plasma </content>0.7 Center MG/DL<content styleCode="Ginny lics"> (0.5-1.3 MG/DL)</conten t> UNK 7-17 <content [facility] styleCode="Jj Womacks d">BUN Medical </content>11 Center MG/DL<content styleCode="Ginny lics"> (7-17 MG/DL)</conten t> Carbon 22-30 <content Saint dioxide, total styleCode="Jj Womacks [Moles/volume] d">Carbon Medical in Serum or Dioxide Center Plasma </content>23 MEQ/L<content styleCode="Ginny lics"> (22-30 MEQ/L)</conten t> Glucose 74-106 <content [facility] [Mass/volume] styleCode="Jj Womacks in Serum or d">Glucose Medical Plasma </content>102 Center MG/DL<content styleCode="Ginny lics"> (74-106 MG/DL)</conten t> Chloride 98-107 <content [facility] [Moles/volume] styleCode="Jj Womacks in Serum or d">Chloride Medical Plasma </content>103 Center MEQ/L<content styleCode="Ginny lics"> (98-107 MEQ/L)</conten t> UNK > 60 <content [facility] styleCode="Jj Womacks d">EGFR Medical </content>125 Center GFR<content styleCode="Ginny lics"> (> 60 GFR)</content> Calcium 8.4-10.2 <content [facility] [Mass/volume] styleCode="Jj Womacks in Serum or d">Calcium Medical Plasma </content>9.7 Center MG/DL<content styleCode="Ginny lics"> (8.4-10.2 MG/DL)</conten t> ID Date Data Source CHMROUTINECCDA.[id number] 08/25/2019 05:16:00 AM EDT [facility] -0400 Name Value Range Interpretation Description Data Sup porting Code Source(s) Document(s ) Cannabinoids <content [facility] [Presence] in styleCode="Jj Izaguirre Urine by Screen d">Cannabinoid Medical method >50 ng/mL s Center </content>NEGA TIVE NG/ML (Reference Range: not available)<br/ > ID Date Data Source Liver 08/19/2019 10:00:00 PM EDT [facility] Profile.[id number] Name Value Range Interpretation Description Data Sup porting Code Source(s) Document(s ) Aspartate 14-36 <content [facility] aminotransferase styleCode="Bold"> Han hs [Enzymatic Aspartate Medical activity/volume] Aminotransferase Center in Serum or Plasma (AST) </content>26 IU/L<content styleCode="Italic s"> (14-36 IU/L)</content> Alanine 7-30 <content [facility] aminotransferase styleCode="Bold"> Han hs [Enzymatic Alanine Medical activity/volume] Aminotransferase Center in Serum or Plasma (ALT) </content>23 IU/L<content styleCode="Italic s"> (7-30 IU/L)</content> UNK 0.0-0.3 <content [facility] styleCode="Bold"> Zina Bilirubin, Direct Medical </content>< 0.2 Center MG/DL<content styleCode="Italic s"> (0.0-0.3 MG/DL)</content> Albumin 3.5-5.0 <content [facility] [Mass/volume] in styleCode="Bold"> Han hs Serum or Plasma Albumin Medical </content>4.6 Center G/DL<content styleCode="Italic s"> (3.5-5.0 G/DL)</content> Bilirubin.total 0.2-1.3 Below low <content [facility] [Mass/volume] in normal styleCode="Bold"> Han hs Serum or Plasma Bilirubin Total Medical </content>< 0.2 Center MG/DL L<content styleCode="Italic s"> (0.2-1.3 MG/DL)</content> Alkaline 38-126 <content [facility] phosphatase styleCode="Bold"> Zina [Enzymatic Alkaline Medical activity/volume] Phosphatase (ALP) Cente r in Serum or Plasma </content>72 IU/L<content styleCode="Italic s"> (38-126 IU/L)</content> ID Date Data Source HematologyRou.[id number] 08/19/2019 10:00:00 PM EDT [facility] 0400 Name Value Range Interpretation Description Data Sup porting Code Source(s) Document(s ) Leukocytes 4.4-11.0 <content [facility] [#/volume] in styleCode="Bold Zina Blood by ">White Blood Medical Automated count Cell Count Center </content>5.76 KCUMM<content styleCode="Ital ics"> (4.4-11.0 KCUMM)</content > Hemoglobin 12.3-16. Below low normal <content [facility] [Mass/volume] in 0 styleCode="Bold Zina Blood ">Hemoglobin Medical </content>9.7 Center G/DL L<content styleCode="Ital ics"> (12.3-16.0 G/DL)</content> Erythrocytes 4.0-5.1 Below low normal <content [facility] [#/volume] in styleCode="Bold Zina Blood by ">Red Blood Medical Automated count Cell Count Center </content>3.55 MCUMM L<content styleCode="Ital ics"> (4.0-5.1 MCUMM)</content > Hematocrit 36.0-46. Below low normal <content [facility] [Volume 0 styleCode="Bold Zina Fraction] of ">Hematocrit Medical Blood by </content>31.3 Center Automated count % L<content styleCode="Ital ics"> (36.0-46.0 %)</content> Erythrocyte mean 80.0-100 <content [facility] corpuscular .0 styleCode="Bold Zina volume [Entitic ">Mean Medical volume] by Corpuscular Center Automated count Volume </content>88.2 FL<content styleCode="Ital ics"> (80.0-100.0 FL)</content> Erythrocyte mean 26.0-34. <content [facility] corpuscular 0 styleCode="Bold Zina hemoglobin ">Mean Medical [Entitic mass] Corposcular Center by Automated Hemoglobin count </content>27.3 PG<content styleCode="Ital ics"> (26.0-34.0 PG)</content> Platelets 130-400 <content [facility] [#/volume] in styleCode="Bold Zina Blood by ">Platelet Medical Automated count Count Center </content>175 KCUMM<content styleCode="Ital ics"> (130-400 KCUMM)</content > Platelet mean 8.0-11.0 Above high <content [facility] volume [Entitic normal styleCode="Bold Zina volume] in Blood ">Mean Platelet Medical by Automated Volume Center count </content>11.8 FL H<content styleCode="Ital ics"> (8.0-11.0 FL)</content> Erythrocyte mean 32.0-37. Below low normal <content [facility] corpuscular 0 styleCode="Bold Zina hemoglobin ">Mean Corpus. Medical concentration Hgb Center [Mass/volume] by Concentration Automated count (MCHC) </content>31.0 G/DL L<content styleCode="Ital ics"> (32.0-37.0 G/DL)</content> Erythrocyte 11.5-14. Above high <content [facility] distribution 5 normal styleCode="Bold Zina width [Ratio] by ">Red Cell Medical Automated count Distribution Center Width </content>17.2 % H<content styleCode="Ital ics"> (11.5-14.5 %)</content> UNK 0.0 <content [facility] styleCode="Bold Zina ">Nucleated Red Medical Blood Cell Center Count </content>0.00 KCUMM<content styleCode="Ital ics"> (0.0 KCUMM)</content > UNK 0 <content [facility] styleCode="Bold Zina ">Nucleated Red Medical Blood Cell Center </content>0.0 /100<content styleCode="Ital ics"> (0 /100)</content> ID Date Data Source GFR(Creatinine).[id number] 08/19/2019 10:00:00 PM EDT [facility] 0-0400 Name Value Range Interpretation Code Description Data Yesica rce(s) Supporting Document(s ) UNK > 60 <content [facility] styleCode="Bold"> Medical Cent er EGFR </content>125 GFR<content styleCode="Italic s"> (> 60 GFR)</content> ID Date Data Source [facility].[id number] 08/19/2019 10:00:00 PM EDT [facility] Name Value Range Interpretation Description Data Sup porting Code Source(s) Document(s ) Chloride 98-107 <content [facility] [Moles/volume] in styleCode="Bold"> [facility] Serum or Plasma Chloride Medical </content>102 Center MEQ/L<content styleCode="Italic s"> (98-107 MEQ/L)</content> Potassium 3.5-5.3 <content [facility] [Moles/volume] in styleCode="Bold"> [facility] Serum or Plasma Potassium Medical </content>4.8 Center MEQ/L<content styleCode="Italic s"> (3.5-5.3 MEQ/L)</content> Sodium 137-145 <content [facility] [Moles/volume] in styleCode="Bold"> [facility] Serum or Plasma Sodium Medical </content>141 Center MEQ/L<content styleCode="Italic s"> (137-145 MEQ/L)</content> Creatinine 0.5-1.3 <content [facility] [Mass/volume] in styleCode="Bold"> Han hs Serum or Plasma Creatinine Medical </content>0.7 Center MG/DL<content styleCode="Italic s"> (0.5-1.3 MG/DL)</content> Glucose 74-106 <content [facility] [Mass/volume] in styleCode="Bold"> Han hs Serum or Plasma Glucose Medical </content>98 Center MG/DL<content styleCode="Italic s"> (74-106 MG/DL)</content> Carbon dioxide, 22-30 <content [facility] total styleCode="Bold"> Zina [Moles/volume] in Carbon Dioxide Medical Serum or Plasma </content>27 Center MEQ/L<content styleCode="Italic s"> (22-30 MEQ/L)</content> Calcium 8.4-10. Above high <content [facility] [Mass/volume] in 2 normal styleCode="Bold"> Han hs Serum or Plasma Calcium Medical </content>10.4 Center MG/DL H<content styleCode="Italic s"> (8.4-10.2 MG/DL)</content> UNK 7-17 <content [facility] styleCode="Bold"> Zina BUN </content>14 Medical MG/DL<content Center styleCode="Italic s"> (7-17 MG/DL)</content> UNK > 60 <content [facility] styleCode="Bold"> Zina EGFR Medical </content>125 Center GFR<content styleCode="Italic s"> (> 60 GFR)</content> Alanine 7-30 <content [facility] aminotransferase styleCode="Bold"> Han hs [Enzymatic Alanine Medical activity/volume] Aminotransferase Center in Serum or Plasma (ALT) </content>23 IU/L<content styleCode="Italic s"> (7-30 IU/L)</content> Aspartate 14-36 <content [facility] aminotransferase styleCode="Bold"> Han hs [Enzymatic Aspartate Medical activity/volume] Aminotransferase Center in Serum or Plasma (AST) </content>26 IU/L<content styleCode="Italic s"> (14-36 IU/L)</content> Bilirubin.total 0.2-1.3 Below low <content [facility] [Mass/volume] in normal styleCode="Bold"> Han hs Serum or Plasma Bilirubin Total Medical </content>< 0.2 Center MG/DL L<content styleCode="Italic s"> (0.2-1.3 MG/DL)</content> Alkaline 38-126 <content [facility] phosphatase styleCode="Bold"> Zina [Enzymatic Alkaline Medical activity/volume] Phosphatase (ALP) Cente r in Serum or Plasma </content>72 IU/L<content styleCode="Italic s"> (38-126 IU/L)</content> Albumin 3.5-5.0 <content [facility] [Mass/volume] in styleCode="Bold"> Han hs Serum or Plasma Albumin Medical </content>4.6 Center G/DL<content styleCode="Italic s"> (3.5-5.0 G/DL)</content> ID Date Data Source Liver 08/19/2019 01:31:00 AM EDT [facility] Profile.[id number] Name Value Range Interpretation Description Data Sup porting Code Source(s) Document(s ) Aspartate 14-36 <content [facility] aminotransferase styleCode="Bold"> Han hs [Enzymatic Aspartate Medical activity/volume] Aminotransferase Center in Serum or Plasma (AST) </content>24 IU/L<content styleCode="Italic s"> (14-36 IU/L)</content> Alanine 7-30 <content [facility] aminotransferase styleCode="Bold"> Han hs [Enzymatic Alanine Medical activity/volume] Aminotransferase Center in Serum or Plasma (ALT) </content>24 IU/L<content styleCode="Italic s"> (7-30 IU/L)</content> UNK 0.0-0.3 <content Saint styleCode="Bold"> Zina Bilirubin, Direct Medical </content>< 0.2 Center MG/DL<content styleCode="Italic s"> (0.0-0.3 MG/DL)</content> Albumin 3.5-5.0 <content [facility] [Mass/volume] in styleCode="Bold"> Han hs Serum or Plasma Albumin Medical </content>4.5 Center G/DL<content styleCode="Italic s"> (3.5-5.0 G/DL)</content> Bilirubin.total 0.2-1.3 Below low <content [facility] [Mass/volume] in normal styleCode="Bold"> Han hs Serum or Plasma Bilirubin Total Medical </content>< 0.2 Center MG/DL L<content styleCode="Italic s"> (0.2-1.3 MG/DL)</content> Alkaline 38-126 <content [facility] phosphatase styleCode="Bold"> Zina [Enzymatic Alkaline Medical activity/volume] Phosphatase (ALP) Cente r in Serum or Plasma </content>78 IU/L<content styleCode="Italic s"> (38-126 IU/L)</content> ID Date Data Source HematologyRou.[id number] 08/19/2019 01:31:00 AM EDT [facility] 0400 Name Value Range Interpretation Description Data Sup porting Code Source(s) Document(s ) Erythrocytes 4.0-5.1 Below low normal <content [facility] [#/volume] in styleCode="Bold Zina Blood by ">Red Blood Medical Automated count Cell Count Center </content>3.58 MCUMM L<content styleCode="Ital ics"> (4.0-5.1 MCUMM)</content > Erythrocyte mean 80.0-100 <content [facility] corpuscular .0 styleCode="Bold Zina volume [Entitic ">Mean Medical volume] by Corpuscular Center Automated count Volume </content>86.6 FL<content styleCode="Ital ics"> (80.0-100.0 FL)</content> Hemoglobin 12.3-16. Below low normal <content Saint [Mass/volume] in 0 styleCode="Bold Zina Blood ">Hemoglobin Medical </content>9.8 Center G/DL L<content styleCode="Ital ics"> (12.3-16.0 G/DL)</content> Hematocrit 36.0-46. Below low normal <content [facility] [Volume 0 styleCode="Bold Zina Fraction] of ">Hematocrit Medical Blood by </content>31.0 Center Automated count % L<content styleCode="Ital ics"> (36.0-46.0 %)</content> Leukocytes 4.4-11.0 <content Saint [#/volume] in styleCode="Bold Zina Blood by ">White Blood Medical Automated count Cell Count Center </content>6.62 KCUMM<content styleCode="Ital ics"> (4.4-11.0 KCUMM)</content > Erythrocyte 11.5-14. Above high <content [facility] distribution 5 normal styleCode="Bold Zina width [Ratio] by ">Red Cell Medical Automated count Distribution Center Width </content>17.3 % H<content styleCode="Ital ics"> (11.5-14.5 %)</content> Platelets 130-400 <content Saint [#/volume] in styleCode="Bold Zina Blood by ">Platelet Medical Automated count Count Center </content>288 KCUMM<content styleCode="Ital ics"> (130-400 KCUMM)</content > Erythrocyte mean 26.0-34. <content [facility] corpuscular 0 styleCode="Bold Zina hemoglobin ">Mean Medical [Entitic mass] Corposcular Center by Automated Hemoglobin count </content>27.4 PG<content styleCode="Ital ics"> (26.0-34.0 PG)</content> Platelet mean 8.0-11.0 <content Saint volume [Entitic styleCode="Bold Zina volume] in Blood ">Mean Platelet Medical by Automated Volume Center count </content>9.9 FL<content styleCode="Ital ics"> (8.0-11.0 FL)</content> Erythrocyte mean 32.0-37. Below low normal <content [facility] corpuscular 0 styleCode="Bold Zina hemoglobin ">Mean Corpus. Medical concentration Hgb Center [Mass/volume] by Concentration Automated count (MCHC) </content>31.6 G/DL L<content styleCode="Ital ics"> (32.0-37.0 G/DL)</content> UNK 0.0 <content Saint styleCode="Bold Zina ">Nucleated Red Medical Blood Cell Center Count </content>0.00 KCUMM<content styleCode="Ital ics"> (0.0 KCUMM)</content > UNK 0 <content Saint styleCode="Bold Zina ">Nucleated Red Medical Blood Cell Center </content>0.0 /100<content styleCode="Ital ics"> (0 /100)</content> ID Date Data Source GFR(Creatinine).[id number] 08/19/2019 01:31:00 AM EDT [facility] 0-0400 Name Value Range Interpretation Code Description Data Yesica rce(s) Supporting Document(s ) UNK > 60 <content [facility] styleCode="Bold"> Medical Cent er EGFR </content>149 GFR<content styleCode="Italic s"> (> 60 GFR)</content> ID Date Data Source BLAISE.[id number] 08/19/2019 01:31:00 AM EDT [facility] -0400 Name Value Range Interpretation Description Data Sup porting Code Source(s) Document(s ) Valproate 50-120 Below low normal <content Saint [Mass/volume] styleCode="Bold Zina in Serum or ">Valproic Acid Medical Plasma </content>< Center 10.0 UG/ML L<content styleCode="Ital ics"> (50-120 UG/ML)</content > ID Date Data Source [facility].[id number] 08/19/2019 01:31:00 AM EDT [facility] Name Value Range Interpretation Description Data Sup porting Code Source(s) Document(s ) Carbon dioxide, 22-30 <content [facility] total styleCode="Bold"> Zina [Moles/volume] in Carbon Dioxide Medical Serum or Plasma </content>26 Center MEQ/L<content styleCode="Italic s"> (22-30 MEQ/L)</content> Potassium 3.5-5.3 <content Saint [Moles/volume] in styleCode="Bold"> [facility] Serum or Plasma Potassium Medical </content>4.7 Center MEQ/L<content styleCode="Italic s"> (3.5-5.3 MEQ/L)</content> Chloride 98-107 <content [facility] [Moles/volume] in styleCode="Bold"> [facility] Serum or Plasma Chloride Medical </content>102 Center MEQ/L<content styleCode="Italic s"> (98-107 MEQ/L)</content> Sodium 137-145 <content [facility] [Moles/volume] in styleCode="Bold"> [facility] Serum or Plasma Sodium Medical </content>139 Center MEQ/L<content styleCode="Italic s"> (137-145 MEQ/L)</content> Creatinine 0.5-1.3 <content [facility] [Mass/volume] in styleCode="Bold"> Han hs Serum or Plasma Creatinine Medical </content>0.6 Center MG/DL<content styleCode="Italic s"> (0.5-1.3 MG/DL)</content> UNK > 60 <content [facility] styleCode="Bold"> Zina EGFR Medical </content>149 Center GFR<content styleCode="Italic s"> (> 60 GFR)</content> UNK 7-17 <content Saint styleCode="Bold"> Zina BUN </content>14 Medical MG/DL<content Center styleCode="Italic s"> (7-17 MG/DL)</content> Glucose 74-106 <content [facility] [Mass/volume] in styleCode="Bold"> Han hs Serum or Plasma Glucose Medical </content>101 Center MG/DL<content styleCode="Italic s"> (74-106 MG/DL)</content> Calcium 8.4-10. <content Saint [Mass/volume] in 2 styleCode="Bold"> Han hs Serum or Plasma Calcium Medical </content>10.2 Center MG/DL<content styleCode="Italic s"> (8.4-10.2 MG/DL)</content> Aspartate 14-36 <content [facility] aminotransferase styleCode="Bold"> Han hs [Enzymatic Aspartate Medical activity/volume] Aminotransferase Center in Serum or Plasma (AST) </content>24 IU/L<content styleCode="Italic s"> (14-36 IU/L)</content> Bilirubin.total 0.2-1.3 Below low <content [facility] [Mass/volume] in normal styleCode="Bold"> Han hs Serum or Plasma Bilirubin Total Medical </content>< 0.2 Center MG/DL L<content styleCode="Italic s"> (0.2-1.3 MG/DL)</content> Alkaline 38-126 <content [facility] phosphatase styleCode="Bold"> Zina [Enzymatic Alkaline Medical activity/volume] Phosphatase (ALP) Cente r in Serum or Plasma </content>78 IU/L<content styleCode="Italic s"> (38-126 IU/L)</content> Albumin 3.5-5.0 <content [facility] [Mass/volume] in styleCode="Bold"> Han hs Serum or Plasma Albumin Medical </content>4.5 Center G/DL<content styleCode="Italic s"> (3.5-5.0 G/DL)</content> Alanine 7-30 <content [facility] aminotransferase styleCode="Bold"> Han hs [Enzymatic Alanine Medical activity/volume] Aminotransferase Center in Serum or Plasma (ALT) </content>24 IU/L<content styleCode="Italic s"> (7-30 IU/L)</content> ID Date Data Source Microbiology.[id number] 08/07/2019 09:58:00 PM EDT [facility] 400 Name Value Range Interpretation Description Data Sup porting Code Source(s) Document(s ) UNK <item><[facility] styleCode="[facility]">Culture Center Status </content>
<table><tbo dy><tr><td>Sp ecimen Number:</td>< td>[id number]< /td></tr><tr> <td>Sample Collection Date/Time: </td><td>2018 9:58 PM</td></tr>< tr><td>Specim en Source:</td>< td>THROAT</td ></tr><tr><td >Culture Report:</td>< td>Culture in progress </td></tr><tr ><td>Throat-N ose Culture:</td> <td>Collectio n Plate Date: 08/07/2019 22:05 </td></tr><tr ><td>Culture Status:</td>< td>Preliminar y </td></tr></t body></table> </item> UNK <item><[facility] styleCode="[facility] ld">Culture Center Report </content>
<table><tbo dy><tr><td>Sp ecimen Number:</td>< td>[id number]< /td></tr><tr> <td>Sample Collection Date/Time: </td><td>2018 9:58 PM</td></tr>< tr><td>Specim en Source:</td>< td>THROAT</td ></tr><tr><td >Throat-Nose Culture:</td> <td>Collectio n Plate Date: 08/07/2019 22:05 </td></tr><tr ><td>Culture Status:</td>< td>Preliminar y </td></tr><tr ><td>Culture Report:</td>< td>Culture in progress </td></tr></t body></table> </item> Streptococcus NEGATIVE <item><conten Saint pyogenes Ag t Zina [Presence] in styleCode="[facility] Unspecified ld">Rapid Center specimen by Strep A Immunoassay </content>
<table><tbo dy><tr><td>Sp ecimen Number:</td>< td>[id number]< /td></tr><tr> <td>Sample Collection Date/Time: </td><td>2018 9:58 PM</td></tr>< tr><td>Specim en Source:</td>< td>THROAT</td ></tr><tr><td >Rapid Strep A:</td><td>NE GATIVE </td></tr></t body></table> </item> ID Date Data Source HematologyRou.[id number] 08/06/2019 12:22:00 AM EDT [facility] 0400 Name Value Range Interpretation Description Data Sup porting Code Source(s) Document(s ) Leukocytes 4.4-11.0 <content Saint [#/volume] in styleCode="Sera Izaguirre Blood by ">White Blood Medical Automated count Cell Count Center </content>4.86 KCUMM<content styleCode="Ital ics"> (4.4-11.0 KCUMM)</content > Erythrocyte mean 80.0-100 <content [facility] corpuscular .0 styleCode="Bold Zina volume [Entitic ">Mean Medical volume] by Corpuscular Center Automated count Volume </content>87.6 FL<content styleCode="Ital ics"> (80.0-100.0 FL)</content> Erythrocytes 4.0-5.1 Below low normal <content Saint [#/volume] in styleCode="Bold Zina Blood by ">Red Blood Medical Automated count Cell Count Center </content>3.38 MCUMM L<content styleCode="Ital ics"> (4.0-5.1 MCUMM)</content > Hemoglobin 12.3-16. Below low normal <content [facility] [Mass/volume] in 0 styleCode="Bold Zina Blood ">Hemoglobin Medical </content>9.4 Center G/DL L<content styleCode="Ital ics"> (12.3-16.0 G/DL)</content> Hematocrit 36.0-46. Below low normal <content Saint [Volume 0 styleCode="Bold Zina Fraction] of ">Hematocrit Medical Blood by </content>29.6 Center Automated count % L<content styleCode="Ital ics"> (36.0-46.0 %)</content> Erythrocyte mean 26.0-34. <content [facility] corpuscular 0 styleCode="Bold Zina hemoglobin ">Mean Medical [Entitic mass] Corposcular Center by Automated Hemoglobin count </content>27.8 PG<content styleCode="Ital ics"> (26.0-34.0 PG)</content> Erythrocyte mean 32.0-37. Below low normal <content [facility] corpuscular 0 styleCode="Bold Zina hemoglobin ">Mean Corpus. Medical concentration Hgb Center [Mass/volume] by Concentration Automated count (MCHC) </content>31.8 G/DL L<content styleCode="Ital ics"> (32.0-37.0 G/DL)</content> Platelets 130-400 <content Saint [#/volume] in styleCode="Bold Zina Blood by ">Platelet Medical Automated count Count Center </content>274 KCUMM<content styleCode="Ital ics"> (130-400 KCUMM)</content > Erythrocyte 11.5-14. Above high <content [facility] distribution 5 normal styleCode="Bold Zina width [Ratio] by ">Red Cell Medical Automated count Distribution Center Width </content>17.7 % H<content styleCode="Ital ics"> (11.5-14.5 %)</content> Platelet mean 8.0-11.0 <content [facility] volume [Entitic styleCode="Bold Zina volume] in Blood ">Mean Platelet Medical by Automated Volume Center count </content>10.0 FL<content styleCode="Ital ics"> (8.0-11.0 FL)</content> UNK 0.0 <content Saint styleCode="Bold Zina ">Nucleated Red Medical Blood Cell Center Count </content>0.00 KCUMM<content styleCode="Ital ics"> (0.0 KCUMM)</content > UNK 0 <content Saint styleCode="Bold Zina ">Nucleated Red Medical Blood Cell Center </content>0.0 /100<content styleCode="Ital ics"> (0 /100)</content> ID Date Data Source GFR(Creatinine).[id number] 08/06/2019 12:22:00 AM EDT [facility] 0-0400 Name Value Range Interpretation Code Description Data Yesica rce(s) Supporting Document(s ) UNK > 60 <content [facility] styleCode="Bold"> [facility] Cent er EGFR </content>149 GFR<content styleCode="Italic s"> (> 60 GFR)</content> ID Date Data Source [id number] 08/06/2019 12:22:00 AM EDT [facility] Name Value Range Interpretation Description Data Sup porting Code Source(s) Document(s ) Carbon 22-30 <content [facility] dioxide, total styleCode="Jj Zina [Moles/volume] d">Carbon Medical in Serum or Dioxide Center Plasma </content>26 MEQ/L<content styleCode="Ginny lics"> (22-30 MEQ/L)</conten t> Potassium 3.5-5.3 <content [facility] [Moles/volume] styleCode="Jj Zina in Serum or d">Potassium Medical Plasma </content>4.0 Center MEQ/L<content styleCode="Ginny lics"> (3.5-5.3 MEQ/L)</conten t> Chloride 98-107 <content [facility] [Moles/volume] styleCode="Jj Womacks in Serum or d">Chloride Medical Plasma </content>107 Center MEQ/L<content styleCode="Ginny lics"> (98-107 MEQ/L)</conten t> UNK 7-17 <content [facility] styleCode="Jj Zina d">BUN Medical </content>12 Center MG/DL<content styleCode="Ginny lics"> (7-17 MG/DL)</conten t> Sodium 137-145 <content [facility] [Moles/volume] styleCode="Jj Womacks in Serum or d">Sodium Medical Plasma </content>140 Center MEQ/L<content styleCode="Ginny lics"> (137-145 MEQ/L)</conten t> Glucose 74-106 Above high normal <content [facility] [Mass/volume] styleCode="Jj Zina in Serum or d">Glucose Medical Plasma </content>137 Center MG/DL H<content styleCode="Ginny lics"> (74-106 MG/DL)</conten t> Calcium 8.4-10.2 <content [facility] [Mass/volume] styleCode="Jj Womacks in Serum or d">Calcium Medical Plasma </content>10.0 Center MG/DL<content styleCode="Ginny lics"> (8.4-10.2 MG/DL)</conten t> Creatinine 0.5-1.3 <content [facility] [Mass/volume] styleCode="Jj Zina in Serum or d">Creatinine Medical Plasma </content>0.6 Center MG/DL<content styleCode="Ginny lics"> (0.5-1.3 MG/DL)</conten t> UNK > 60 <content [facility] styleCode="Jj Zina d">EGFR Medical </content>149 Center GFR<content styleCode="Ginny lics"> (> 60 GFR)</content> ID Date Data Source Liver Profile 04/23/2019 06:48:00 PM EDT [facility] Name Value Range Interpretation Description Data Sup porting Code Source(s) Document(s ) Alanine 7-30 <content [facility] aminotransferase styleCode="Bold"> [facility] hs [Enzymatic Alanine Medical activity/volume] Aminotransferase Center in Serum or Plasma (ALT) </content>25 IU/L<content styleCode="Italic s"> (7-30 IU/L)</content> Aspartate 14-36 <content [facility] aminotransferase styleCode="Bold"> Han hs [Enzymatic Aspartate Medical activity/volume] Aminotransferase Center in Serum or Plasma (AST) </content>26 IU/L<content styleCode="Italic s"> (14-36 IU/L)</content> Albumin 3.5-5.0 <content [facility] [Mass/volume] in styleCode="Bold"> Han hs Serum or Plasma Albumin Medical </content>4.7 Center G/DL<content styleCode="Italic s"> (3.5-5.0 G/DL)</content> Alkaline 38-126 <content [facility] phosphatase styleCode="Bold"> Zina [Enzymatic Alkaline Medical activity/volume] Phosphatase (ALP) Cente r in Serum or Plasma </content>52 IU/L<content styleCode="Italic s"> (38-126 IU/L)</content> Bilirubin.total 0.2-1.3 <content [facility] [Mass/volume] in styleCode="Bold"> Han hs Serum or Plasma Bilirubin Total Medical </content>0.5 Center MG/DL<content styleCode="Italic s"> (0.2-1.3 MG/DL)</content> UNK 0.0-0.3 <content [facility] styleCode="Bold"> Zina Bilirubin, Direct Medical </content>< 0.2 Center MG/DL<content styleCode="Italic s"> (0.0-0.3 MG/DL)</content> Aspartate 14-36 <content [facility] aminotransferase styleCode="Bold"> Han hs [Enzymatic Aspartate Medical activity/volume] Aminotransferase Center in Serum or Plasma (AST) </content>22 IU/L<content styleCode="Italic s"> (14-36 IU/L)</content> Albumin 3.5-5.0 <content [facility] [Mass/volume] in styleCode="Bold"> Han hs Serum or Plasma Albumin Medical </content>4.4 Center G/DL<content styleCode="Italic s"> (3.5-5.0 G/DL)</content> UNK 0.0-0.3 <content [facility] styleCode="Bold"> Zina Bilirubin, Direct Medical </content>< 0.2 Center MG/DL<content styleCode="Italic s"> (0.0-0.3 MG/DL)</content> Bilirubin.total 0.2-1.3 <content [facility] [Mass/volume] in styleCode="Bold"> Han hs Serum or Plasma Bilirubin Total Medical </content>0.3 Center MG/DL<content styleCode="Italic s"> (0.2-1.3 MG/DL)</content> Alkaline 38-126 <content [facility] phosphatase styleCode="Bold"> Zina [Enzymatic Alkaline Medical activity/volume] Phosphatase (ALP) Cente r in Serum or Plasma </content>72 IU/L<content styleCode="Italic s"> (38-126 IU/L)</content> Alanine 7-30 <content [facility] aminotransferase styleCode="Bold"> [facility] hs [Enzymatic Alanine Medical activity/volume] Aminotransferase Center in Serum or Plasma (ALT) </content>19 IU/L<content styleCode="Italic s"> (7-30 IU/L)</content> Alanine 7-30 <content [facility] aminotransferase styleCode="Bold"> [facility] hs [Enzymatic Alanine Medical activity/volume] Aminotransferase Center in Serum or Plasma (ALT) </content>17 IU/L<content styleCode="Italic s"> (7-30 IU/L)</content> Aspartate 14-36 <content [facility] aminotransferase styleCode="Bold"> Han hs [Enzymatic Aspartate Medical activity/volume] Aminotransferase Center in Serum or Plasma (AST) </content>23 IU/L<content styleCode="Italic s"> (14-36 IU/L)</content> Albumin 3.5-5.0 <content [facility] [Mass/volume] in styleCode="Bold"> Han hs Serum or Plasma Albumin Medical </content>4.4 Center G/DL<content styleCode="Italic s"> (3.5-5.0 G/DL)</content> Bilirubin.total 0.2-1.3 <content [facility] [Mass/volume] in styleCode="Bold"> Han hs Serum or Plasma Bilirubin Total Medical </content>0.4 Center MG/DL<content styleCode="Italic s"> (0.2-1.3 MG/DL)</content> Alkaline 38-126 <content [facility] phosphatase styleCode="Bold"> Zina [Enzymatic Alkaline Medical activity/volume] Phosphatase (ALP) Cente r in Serum or Plasma </content>59 IU/L<content styleCode="Italic s"> (38-126 IU/L)</content> Albumin 3.5-5.0 <content [facility] [Mass/volume] in styleCode="Bold"> Han hs Serum or Plasma Albumin Medical </content>4.6 Center G/DL<content styleCode="Italic s"> (3.5-5.0 G/DL)</content> UNK 0.0-0.3 <content [facility] styleCode="Bold"> Zina Bilirubin, Direct Medical </content>< 0.2 Center MG/DL<content styleCode="Italic s"> (0.0-0.3 MG/DL)</content> Bilirubin.total 0.2-1.3 <content [facility] [Mass/volume] in styleCode="Bold"> Han hs Serum or Plasma Bilirubin Total Medical </content>0.3 Center MG/DL<content styleCode="Italic s"> (0.2-1.3 MG/DL)</content> Alkaline 38-126 <content [facility] phosphatase styleCode="Bold"> Zina [Enzymatic Alkaline Medical activity/volume] Phosphatase (ALP) Cente r in Serum or Plasma </content>60 IU/L<content styleCode="Italic s"> (38-126 IU/L)</content> Alanine 7-30 <content [facility] aminotransferase styleCode="Bold"> Han hs [Enzymatic Alanine Medical activity/volume] Aminotransferase Center in Serum or Plasma (ALT) </content>19 IU/L<content styleCode="Italic s"> (7-30 IU/L)</content> Aspartate 14-36 <content [facility] aminotransferase styleCode="Bold"> Han hs [Enzymatic Aspartate Medical activity/volume] Aminotransferase Center in Serum or Plasma (AST) </content>21 IU/L<content styleCode="Italic s"> (14-36 IU/L)</content> ID Date Data Source Hematology[facility]ou 04/23/2019 06:48:00 PM EDT [facility] Name Value Range Interpretation Description Data Sup porting Code Source(s) Document(s ) Leukocytes 4.4-11.0 <content [facility] [#/volume] in styleCode="Bold Zina Blood by ">White Blood Medical Automated count Cell Count Center </content>5.27 KCUMM<content styleCode="Ital ics"> (4.4-11.0 KCUMM)</content > Erythrocytes 4.0-5.1 Below low normal <content [facility] [#/volume] in styleCode="Bold Zina Blood by ">Red Blood Medical Automated count Cell Count Center </content>3.91 MCUMM L<content styleCode="Ital ics"> (4.0-5.1 MCUMM)</content > Erythrocyte mean 26.0-34. <content [facility] corpuscular 0 styleCode="Bold Zina hemoglobin ">Mean Medical [Entitic mass] Corposcular Center by Automated Hemoglobin count </content>29.2 PG<content styleCode="Ital ics"> (26.0-34.0 PG)</content> Hemoglobin 12.3-16. Below low normal <content [facility] [Mass/volume] in 0 styleCode="Bold Zina Blood ">Hemoglobin Medical </content>11.4 Center G/DL L<content styleCode="Ital ics"> (12.3-16.0 G/DL)</content> Erythrocyte mean 80.0-100 <content [facility] corpuscular .0 styleCode="Bold Zina volume [Entitic ">Mean Medical volume] by Corpuscular Center Automated count Volume </content>91.8 FL<content styleCode="Ital ics"> (80.0-100.0 FL)</content> Hematocrit 36.0-46. Below low normal <content [facility] [Volume 0 styleCode="Bold Zina Fraction] of ">Hematocrit Medical Blood by </content>35.9 Center Automated count % L<content styleCode="Ital ics"> (36.0-46.0 %)</content> Platelets 130-400 <content [facility] [#/volume] in styleCode="Bold Zina Blood by ">Platelet Medical Automated count Count Center </content>262 KCUMM<content styleCode="Ital ics"> (130-400 KCUMM)</content > Platelet mean 8.0-11.0 <content [facility] volume [Entitic styleCode="Bold Zina volume] in Blood ">Mean Platelet Medical by Automated Volume Center count </content>10.2 FL<content styleCode="Ital ics"> (8.0-11.0 FL)</content> Erythrocyte 11.5-14. <content [facility] distribution 5 styleCode="Bold Zina width [Ratio] by ">Red Cell Medical Automated count Distribution Center Width </content>13.6 %<content styleCode="Ital ics"> (11.5-14.5 %)</content> Erythrocyte mean 32.0-37. Below low normal <content [facility] corpuscular 0 styleCode="Bold Zina hemoglobin ">Mean Corpus. Medical concentration Hgb Center [Mass/volume] by Concentration Automated count (MCHC) </content>31.8 G/DL L<content styleCode="Ital ics"> (32.0-37.0 G/DL)</content> UNK 0 <content [facility] styleCode="Bold Zina ">Nucleated Red Medical Blood Cell Center </content>0.0 /100<content styleCode="Ital ics"> (0 /100)</content> UNK 0.0 <content [facility] styleCode="Bold Zina ">Nucleated Red Medical Blood Cell Center Count </content>0.00 KCUMM<content styleCode="Ital ics"> (0.0 KCUMM)</content > Hematocrit 36.0-46. Below low normal <content [facility] [Volume 0 styleCode="Bold Zina Fraction] of ">Hematocrit Medical Blood by </content>31.4 Center Automated count % L<content styleCode="Ital ics"> (36.0-46.0 %)</content> Hemoglobin 12.3-16. Below low normal <content [facility] [Mass/volume] in 0 styleCode="Bold Zina Blood ">Hemoglobin Medical </content>9.8 Center G/DL L<content styleCode="Ital ics"> (12.3-16.0 G/DL)</content> Erythrocytes 4.0-5.1 Below low normal <content [facility] [#/volume] in styleCode="Bold Zina Blood by ">Red Blood Medical Automated count Cell Count Center </content>3.45 MCUMM L<content styleCode="Ital ics"> (4.0-5.1 MCUMM)</content > Leukocytes 4.4-11.0 Below low normal <content [facility] [#/volume] in styleCode="Bold Zina Blood by ">White Blood Medical Automated count Cell Count Center </content>3.37 KCUMM L<content styleCode="Ital ics"> (4.4-11.0 KCUMM)</content > Platelets 130-400 <content [facility] [#/volume] in styleCode="Bold Zina Blood by ">Platelet Medical Automated count Count Center </content>230 KCUMM<content styleCode="Ital ics"> (130-400 KCUMM)</content > Erythrocyte 11.5-14. Above high <content [facility] distribution 5 normal styleCode="Bold Zina width [Ratio] by ">Red Cell Medical Automated count Distribution Center Width </content>15.3 % H<content styleCode="Ital ics"> (11.5-14.5 %)</content> Erythrocyte mean 32.0-37. Below low normal <content [facility] corpuscular 0 styleCode="Bold Zina hemoglobin ">Mean Corpus. Medical concentration Hgb Center [Mass/volume] by Concentration Automated count (MCHC) </content>31.2 G/DL L<content styleCode="Ital ics"> (32.0-37.0 G/DL)</content> Erythrocyte mean 26.0-34. <content [facility] corpuscular 0 styleCode="Bold Zina hemoglobin ">Mean Medical [Entitic mass] Corposcular Center by Automated Hemoglobin count </content>28.4 PG<content styleCode="Ital ics"> (26.0-34.0 PG)</content> Erythrocyte mean 80.0-100 <content [facility] corpuscular .0 styleCode="Bold Zina volume [Entitic ">Mean Medical volume] by Corpuscular Center Automated count Volume </content>91.0 FL<content styleCode="Ital ics"> (80.0-100.0 FL)</content> UNK 0.0 <content Saint styleCode="Bold Zina ">Nucleated Red Medical Blood Cell Center Count </content>0.00 KCUMM<content styleCode="Ital ics"> (0.0 KCUMM)</content > UNK 0 <content [facility] styleCode="Bold Zina ">Nucleated Red Medical Blood Cell Center </content>0.0 /100<content styleCode="Ital ics"> (0 /100)</content> Platelet mean 8.0-11.0 <content [facility] volume [Entitic styleCode="Bold Zina volume] in Blood ">Mean Platelet Medical by Automated Volume Center count </content>10.8 FL<content styleCode="Ital ics"> (8.0-11.0 FL)</content> Erythrocytes 4.0-5.1 Below low normal <content [facility] [#/volume] in styleCode="Bold Znia Blood by ">Red Blood Medical Automated count Cell Count Center </content>3.83 MCUMM L<content styleCode="Ital ics"> (4.0-5.1 MCUMM)</content > Leukocytes 4.4-11.0 Below low normal <content [facility] [#/volume] in styleCode="Bold Zina Blood by ">White Blood Medical Automated count Cell Count Center </content>3.84 KCUMM L<content styleCode="Ital ics"> (4.4-11.0 KCUMM)</content > Erythrocyte mean 26.0-34. <content [facility] corpuscular 0 styleCode="Bold Zina hemoglobin ">Mean Medical [Entitic mass] Corposcular Center by Automated Hemoglobin count </content>28.5 PG<content styleCode="Ital ics"> (26.0-34.0 PG)</content> Erythrocyte mean 80.0-100 <content [facility] corpuscular .0 styleCode="Bold Zina volume [Entitic ">Mean Medical volume] by Corpuscular Center Automated count Volume </content>90.3 FL<content styleCode="Ital ics"> (80.0-100.0 FL)</content> Hematocrit 36.0-46. Below low normal <content [facility] [Volume 0 styleCode="Bold Zina Fraction] of ">Hematocrit Medical Blood by </content>34.6 Center Automated count % L<content styleCode="Ital ics"> (36.0-46.0 %)</content> Hemoglobin 12.3-16. Below low normal <content [facility] [Mass/volume] in 0 styleCode="Bold Zina Blood ">Hemoglobin Medical </content>10.9 Center G/DL L<content styleCode="Ital ics"> (12.3-16.0 G/DL)</content> UNK 0 <content [facility] styleCode="Bold Zina ">Nucleated Red Medical Blood Cell Center </content>0.0 /100<content styleCode="Ital ics"> (0 /100)</content> Platelet mean 8.0-11.0 Above high <content [facility] volume [Entitic normal styleCode="Bold Zina volume] in Blood ">Mean Platelet Medical by Automated Volume Center count </content>11.1 FL H<content styleCode="Ital ics"> (8.0-11.0 FL)</content> Platelets 130-400 <content [facility] [#/volume] in styleCode="Bold Zina Blood by ">Platelet Medical Automated count Count Center </content>262 KCUMM<content styleCode="Ital ics"> (130-400 KCUMM)</content > Erythrocyte 11.5-14. Above high <content [facility] distribution 5 normal styleCode="Bold Zina width [Ratio] by ">Red Cell Medical Automated count Distribution Center Width </content>15.4 % H<content styleCode="Ital ics"> (11.5-14.5 %)</content> Erythrocyte mean 32.0-37. Below low normal <content [facility] corpuscular 0 styleCode="Bold Zina hemoglobin ">Mean Corpus. Medical concentration Hgb Center [Mass/volume] by Concentration Automated count (MCHC) </content>31.5 G/DL L<content styleCode="Ital ics"> (32.0-37.0 G/DL)</content> UNK 0.0 <content [facility] styleCode="Bold Zina ">Nucleated Red Medical Blood Cell Center Count </content>0.00 KCUMM<content styleCode="Ital ics"> (0.0 KCUMM)</content > Leukocytes 4.4-11.0 Below low normal <content [facility] [#/volume] in styleCode="Bold Zina Blood by ">White Blood Medical Automated count Cell Count Center </content>4.03 KCUMM L<content styleCode="Ital ics"> (4.4-11.0 KCUMM)</content > Erythrocyte mean 32.0-37. Below low normal <content [facility] corpuscular 0 styleCode="Bold Zina hemoglobin ">Mean Corpus. Medical concentration Hgb Center [Mass/volume] by Concentration Automated count (MCHC) </content>31.5 G/DL L<content styleCode="Ital ics"> (32.0-37.0 G/DL)</content> Erythrocyte mean 26.0-34. <content [facility] corpuscular 0 styleCode="Bold Zina hemoglobin ">Mean Medical [Entitic mass] Corposcular Center by Automated Hemoglobin count </content>28.5 PG<content styleCode="Ital ics"> (26.0-34.0 PG)</content> Erythrocyte mean 80.0-100 <content [facility] corpuscular .0 styleCode="Bold Zina volume [Entitic ">Mean Medical volume] by Corpuscular Center Automated count Volume </content>90.7 FL<content styleCode="Ital ics"> (80.0-100.0 FL)</content> Hematocrit 36.0-46. Below low normal <content [facility] [Volume 0 styleCode="Bold Zina Fraction] of ">Hematocrit Medical Blood by </content>34.0 Center Automated count % L<content styleCode="Ital ics"> (36.0-46.0 %)</content> Hemoglobin 12.3-16. Below low normal <content [facility] [Mass/volume] in 0 styleCode="Bold Zina Blood ">Hemoglobin Medical </content>10.7 Center G/DL L<content styleCode="Ital ics"> (12.3-16.0 G/DL)</content> Erythrocytes 4.0-5.1 Below low normal <content [facility] [#/volume] in styleCode="Bold Zina Blood by ">Red Blood Medical Automated count Cell Count Center </content>3.75 MCUMM L<content styleCode="Ital ics"> (4.0-5.1 MCUMM)</content > UNK 0.0 <content [facility] styleCode="Bold Zina ">Nucleated Red Medical Blood Cell Center Count </content>0.00 KCUMM<content styleCode="Ital ics"> (0.0 KCUMM)</content > UNK 0 <content [facility] styleCode="Bold Zina ">Nucleated Red Medical Blood Cell Center </content>0.0 /100<content styleCode="Ital ics"> (0 /100)</content> Platelet mean 8.0-11.0 <content [facility] volume [Entitic styleCode="Bold Zina volume] in Blood ">Mean Platelet Medical by Automated Volume Center count </content>10.5 FL<content styleCode="Ital ics"> (8.0-11.0 FL)</content> Platelets 130-400 <content [facility] [#/volume] in styleCode="Bold Zina Blood by ">Platelet Medical Automated count Count Center </content>282 KCUMM<content styleCode="Ital ics"> (130-400 KCUMM)</content > Erythrocyte 11.5-14. Above high <content [facility] distribution 5 normal styleCode="Sera Zina width [Ratio] by ">Red Cell Medical Automated count Distribution Center Width </content>15.4 % H<content styleCode="Ital ics"> (11.5-14.5 %)</content> ID Date Data Source GFR(Creatinine) 04/23/2019 06:48:00 PM EDT [facility] Name Value Range Interpretation Code Description Data Yesica rce(s) Supporting Document(s ) UNK > 60 <content [facility] styleCode="Bold"> Medical Cent er EGFR </content>108 GFR<content styleCode="Italic s"> (> 60 GFR)</content> UNK > 60 <content [facility] styleCode="Bold"> Medical Cent er EGFR </content>125 GFR<content styleCode="Italic s"> (> 60 GFR)</content> UNK > 60 <content [facility] styleCode="Bold"> Medical Cent er EGFR </content>107 GFR<content styleCode="Italic s"> (> 60 GFR)</content> UNK > 60 <content [facility] styleCode="Bold"> Medical Cent er EGFR </content>68 GFR<content styleCode="Italic s"> (> 60 GFR)</content> ID Date Data Source BMP 04/23/2019 06:48:00 PM EDT [facility] Name Value Range Interpretation Description Data Sup porting Code Source(s) Document(s ) Sodium 137-145 <content [facility] [Moles/volume] in styleCode="Bold"> [facility] Serum or Plasma Sodium Medical </content>141 Center MEQ/L<content styleCode="Italic s"> (137-145 MEQ/L)</content> Creatinine 0.5-1.3 <content [facility] [Mass/volume] in styleCode="Bold"> Han hs Serum or Plasma Creatinine Medical </content>0.8 Center MG/DL<content styleCode="Italic s"> (0.5-1.3 MG/DL)</content> Potassium 3.5-5.3 <content [facility] [Moles/volume] in styleCode="Bold"> [facility] Serum or Plasma Potassium Medical </content>4.5 Center MEQ/L<content styleCode="Italic s"> (3.5-5.3 MEQ/L)</content> Chloride 98-107 <content [facility] [Moles/volume] in styleCode="Bold"> [facility] Serum or Plasma Chloride Medical </content>104 Center MEQ/L<content styleCode="Italic s"> (98-107 MEQ/L)</content> UNK 7-17 <content [facility] styleCode="Bold"> Zina BUN </content>14 Medical MG/DL<content Center styleCode="Italic s"> (7-17 MG/DL)</content> Carbon dioxide, 22-30 <content [facility] total styleCode="Bold"> Zina [Moles/volume] in Carbon Dioxide Medical Serum or Plasma </content>28 Center MEQ/L<content styleCode="Italic s"> (22-30 MEQ/L)</content> Glucose 74-106 <content [facility] [Mass/volume] in styleCode="Bold"> Han hs Serum or Plasma Glucose Medical </content>91 Center MG/DL<content styleCode="Italic s"> (74-106 MG/DL)</content> Aspartate 14-36 <content [facility] aminotransferase styleCode="Bold"> Han hs [Enzymatic Aspartate Medical activity/volume] Aminotransferase Center in Serum or Plasma (AST) </content>26 IU/L<content styleCode="Italic s"> (14-36 IU/L)</content> UNK > 60 <content [facility] styleCode="Bold"> Zina EGFR Medical </content>108 Center GFR<content styleCode="Italic s"> (> 60 GFR)</content> Calcium 8.4-10. Above high <content [facility] [Mass/volume] in 2 normal styleCode="Bold"> Han hs Serum or Plasma Calcium Medical </content>10.5 Center MG/DL H<content styleCode="Italic s"> (8.4-10.2 MG/DL)</content> Albumin 3.5-5.0 <content [facility] [Mass/volume] in styleCode="Bold"> Han hs Serum or Plasma Albumin Medical </content>4.7 Center G/DL<content styleCode="Italic s"> (3.5-5.0 G/DL)</content> Alkaline 38-126 <content [facility] phosphatase styleCode="Bold"> Zina [Enzymatic Alkaline Medical activity/volume] Phosphatase (ALP) Cente r in Serum or Plasma </content>52 IU/L<content styleCode="Italic s"> (38-126 IU/L)</content> Bilirubin.total 0.2-1.3 <content [facility] [Mass/volume] in styleCode="Bold"> Han hs Serum or Plasma Bilirubin Total Medical </content>0.5 Center MG/DL<content styleCode="Italic s"> (0.2-1.3 MG/DL)</content> Alanine 7-30 <content [facility] aminotransferase styleCode="Bold"> Han hs [Enzymatic Alanine Medical activity/volume] Aminotransferase Center in Serum or Plasma (ALT) </content>25 IU/L<content styleCode="Italic s"> (7-30 IU/L)</content> Potassium 3.5-5.3 <content [facility] [Moles/volume] in styleCode="Bold"> [facility] Serum or Plasma Potassium Medical </content>4.2 Center MEQ/L<content styleCode="Italic s"> (3.5-5.3 MEQ/L)</content> Sodium 137-145 <content [facility] [Moles/volume] in styleCode="Bold"> [facility] Serum or Plasma Sodium Medical </content>138 Center MEQ/L<content styleCode="Italic s"> (137-145 MEQ/L)</content> Calcium 8.4-10. <content [facility] [Mass/volume] in 2 styleCode="Bold"> Han hs Serum or Plasma Calcium Medical </content>9.9 Center MG/DL<content styleCode="Italic s"> (8.4-10.2 MG/DL)</content> Glucose 74-106 <content [facility] [Mass/volume] in styleCode="Bold"> Han hs Serum or Plasma Glucose Medical </content>76 Center MG/DL<content styleCode="Italic s"> (74-106 MG/DL)</content> Creatinine 0.5-1.3 <content [facility] [Mass/volume] in styleCode="Bold"> Han hs Serum or Plasma Creatinine Medical </content>0.7 Center MG/DL<content styleCode="Italic s"> (0.5-1.3 MG/DL)</content> UNK 7-17 <content [facility] styleCode="Bold"> Zina BUN </content>7 Medical MG/DL<content Center styleCode="Italic s"> (7-17 MG/DL)</content> Carbon dioxide, 22-30 <content [facility] total styleCode="Bold"> Zina [Moles/volume] in Carbon Dioxide Medical Serum or Plasma </content>25 Center MEQ/L<content styleCode="Italic s"> (22-30 MEQ/L)</content> Chloride 98-107 <content [facility] [Moles/volume] in styleCode="Bold"> [facility] Serum or Plasma Chloride Medical </content>101 Center MEQ/L<content styleCode="Italic s"> (98-107 MEQ/L)</content> UNK > 60 <content [facility] styleCode="Bold"> Zina EGFR Medical </content>125 Center GFR<content styleCode="Italic s"> (> 60 GFR)</content> UNK 7-17 <content [facility] styleCode="Bold"> Zina BUN </content>14 Medical MG/DL<content Center styleCode="Italic s"> (7-17 MG/DL)</content> Carbon dioxide, 22-30 <content [facility] total styleCode="Bold"> Zina [Moles/volume] in Carbon Dioxide Medical Serum or Plasma </content>23 Center MEQ/L<content styleCode="Italic s"> (22-30 MEQ/L)</content> Chloride 98-107 <content [facility] [Moles/volume] in styleCode="Bold"> [facility] Serum or Plasma Chloride Medical </content>105 Center MEQ/L<content styleCode="Italic s"> (98-107 MEQ/L)</content> Potassium 3.5-5.3 <content [facility] [Moles/volume] in styleCode="Bold"> [facility] Serum or Plasma Potassium Medical </content>4.5 Center MEQ/L<content styleCode="Italic s"> (3.5-5.3 MEQ/L)</content> Sodium 137-145 <content [facility] [Moles/volume] in styleCode="Bold"> [facility] Serum or Plasma Sodium Medical </content>138 Center MEQ/L<content styleCode="Italic s"> (137-145 MEQ/L)</content> Aspartate 14-36 <content Saint aminotransferase styleCode="Bold"> Han hs [Enzymatic Aspartate Medical activity/volume] Aminotransferase Center in Serum or Plasma (AST) </content>23 IU/L<content styleCode="Italic s"> (14-36 IU/L)</content> UNK > 60 <content Saint styleCode="Bold"> Zina EGFR Medical </content>107 Center GFR<content styleCode="Italic s"> (> 60 GFR)</content> Calcium 8.4-10. <content Saint [Mass/volume] in 2 styleCode="Bold"> Han hs Serum or Plasma Calcium Medical </content>10.0 Center MG/DL<content styleCode="Italic s"> (8.4-10.2 MG/DL)</content> Glucose 74-106 <content Saint [Mass/volume] in styleCode="Bold"> Han hs Serum or Plasma Glucose Medical </content>84 Center MG/DL<content styleCode="Italic s"> (74-106 MG/DL)</content> Creatinine 0.5-1.3 <content Saint [Mass/volume] in styleCode="Bold"> Han hs Serum or Plasma Creatinine Medical </content>0.8 Center MG/DL<content styleCode="Italic s"> (0.5-1.3 MG/DL)</content> Albumin 3.5-5.0 <content Saint [Mass/volume] in styleCode="Bold"> Han hs Serum or Plasma Albumin Medical </content>4.4 Center G/DL<content styleCode="Italic s"> (3.5-5.0 G/DL)</content> Bilirubin.total 0.2-1.3 <content Saint [Mass/volume] in styleCode="Bold"> Han hs Serum or Plasma Bilirubin Total Medical </content>0.4 Center MG/DL<content styleCode="Italic s"> (0.2-1.3 MG/DL)</content> Alkaline 38-126 <content Saint phosphatase styleCode="Bold"> Zina [Enzymatic Alkaline Medical activity/volume] Phosphatase (ALP) Cente r in Serum or Plasma </content>59 IU/L<content styleCode="Italic s"> (38-126 IU/L)</content> Alanine 7-30 <content Saint aminotransferase styleCode="Bold"> Han hs [Enzymatic Alanine Medical activity/volume] Aminotransferase Center in Serum or Plasma (ALT) </content>17 IU/L<content styleCode="Italic s"> (7-30 IU/L)</content> Chloride 98-107 <content Saint [Moles/volume] in styleCode="Bold"> [facility] Serum or Plasma Chloride Medical </content>104 Center MEQ/L<content styleCode="Italic s"> (98-107 MEQ/L)</content> Potassium 3.5-5.3 <content Saint [Moles/volume] in styleCode="Bold"> [facility] Serum or Plasma Potassium Medical </content>4.9 Center MEQ/L<content styleCode="Italic s"> (3.5-5.3 MEQ/L)</content> Sodium 137-145 <content Saint [Moles/volume] in styleCode="Bold"> [facility] Serum or Plasma Sodium Medical </content>142 Center MEQ/L<content styleCode="Italic s"> (137-145 MEQ/L)</content> UNK > 60 <content Saint styleCode="Bold"> Zina EGFR </content>68 Medical GFR<content Center styleCode="Italic s"> (> 60 GFR)</content> Calcium 8.4-10. Above high <content Saint [Mass/volume] in 2 normal styleCode="Bold"> Han hs Serum or Plasma Calcium Medical </content>10.3 Center MG/DL H<content styleCode="Italic s"> (8.4-10.2 MG/DL)</content> Glucose 74-106 Above high <content Saint [Mass/volume] in normal styleCode="Bold"> Han hs Serum or Plasma Glucose Medical </content>108 Center MG/DL H<content styleCode="Italic s"> (74-106 MG/DL)</content> Creatinine 0.5-1.3 <content Saint [Mass/volume] in styleCode="Bold"> Han hs Serum or Plasma Creatinine Medical </content>1.0 Center MG/DL<content styleCode="Italic s"> (0.5-1.3 MG/DL)</content> UNK 7-17 Above high <content Saint normal styleCode="Bold"> Zina BUN </content>18 Medical MG/DL H<content Center styleCode="Italic s"> (7-17 MG/DL)</content> Carbon dioxide, 22-30 <content Saint total styleCode="Bold"> Zina [Moles/volume] in Carbon Dioxide Medical Serum or Plasma </content>25 Center MEQ/L<content styleCode="Italic s"> (22-30 MEQ/L)</content> Albumin 3.5-5.0 <content Saint [Mass/volume] in styleCode="Bold"> Han hs Serum or Plasma Albumin Medical </content>4.6 Center G/DL<content styleCode="Italic s"> (3.5-5.0 G/DL)</content> Bilirubin.total 0.2-1.3 <content Saint [Mass/volume] in styleCode="Bold"> Han hs Serum or Plasma Bilirubin Total Medical </content>0.3 Center MG/DL<content styleCode="Italic s"> (0.2-1.3 MG/DL)</content> Alkaline 38-126 <content Saint phosphatase styleCode="Bold"> Zina [Enzymatic Alkaline Medical activity/volume] Phosphatase (ALP) Cente r in Serum or Plasma </content>60 IU/L<content styleCode="Italic s"> (38-126 IU/L)</content> Alanine 7-30 <content [facility] aminotransferase styleCode="Bold"> Han hs [Enzymatic Alanine Medical activity/volume] Aminotransferase Center in Serum or Plasma (ALT) </content>19 IU/L<content styleCode="Italic s"> (7-30 IU/L)</content> Aspartate 14-36 <content [facility] aminotransferase styleCode="Bold"> Han hs [Enzymatic Aspartate Medical activity/volume] Aminotransferase Center in Serum or Plasma (AST) </content>21 IU/L<content styleCode="Italic s"> (14-36 IU/L)</content> ID Date Data Source CHMROUTINECCDA 04/23/2019 05:39:00 AM EDT [facility] Name Value Range Interpretation Description Data Sup porting Code Source(s) Document(s ) Cannabinoids <content Saint [Presence] in styleCode="[facility] Urine by Screen d">Cannabinoid Medical method >50 s Center ng/mL </content>NEGA TIVE NG/ML (Reference Range: not available)<br/ > Phosphate 2.5-4.5 <content Saint [Mass/volume] styleCode="Jj Zina in Serum or d">Phosphorus Medical Plasma </content>4.4 Center MG/DL<content styleCode="Ginny lics"> (2.5-4.5 MG/DL)</conten t> Magnesium 1.6-2.3 <content Saint [Mass/volume] styleCode="Jj Zina in Serum or d">Magnesium Medical Plasma </content>2.2 Center MG/DL<content styleCode="Ginny lics"> (1.6-2.3 MG/DL)</conten t> UNK >= 1.0 <content Saint styleCode="Jj Zina d">AG Ratio Medical </content>1.1 Center <content styleCode="Ginny lics"> (>= 1.0 )</content> Protein 6.3-8.2 Above high normal <content Saint [Mass/volume] styleCode="Jj Zina in Serum or d">Total Medical Plasma Protein Center </content>8.5 G/DL H<content styleCode="Ginny lics"> (6.3-8.2 G/DL)</content > Phosphate 2.5-4.5 Above high normal <content Saint [Mass/volume] styleCode="Jj Zina in Serum or d">Phosphorus Medical Plasma </content>4.6 Center MG/DL H<content styleCode="Ginny lics"> (2.5-4.5 MG/DL)</conten t> Magnesium 1.6-2.3 <content Saint [Mass/volume] styleCode="Jj Zina in Serum or d">Magnesium Medical Plasma </content>2.2 Center MG/DL<content styleCode="Ginny lics"> (1.6-2.3 MG/DL)</conten t> UNK 2.3-3.5 Above high normal <content Saint styleCode="Jj Zina d">Globulin Medical </content>4.1 Center G/DL H<content styleCode="Ginny lics"> (2.3-3.5 G/DL)</content > ID Date Data Source [employer] 04/22/2019 06:52:00 AM EDT [facility] Name Value Range Interpretation Description Data Sup porting Code Source(s) Document(s ) Creatine 30-135 <content [facility] kinase styleCode="Bold Medical [Enzymatic ">CK Center activity/vol </content>88 ume] in IU/L<content Serum or styleCode="Ital Plasma ics"> (30-135 IU/L)</content> ID Date Data Source Urinalysis 04/21/2019 02:17:00 PM [facility] Name Value Range Interpretation Description Data Sup porting Code Source(s) Document(s ) Glucose NEGATIVE <content Saint [Mass/volume] styleCode="Jj Womacks in Urine by d">Urine Medical Test strip Glucose Center </content>NEGA TIVE MG/DL<content styleCode="Ginny lics"> (NEGATIVE MG/DL)</conten t> Ketones NEGATIVE <content Saint [Mass/volume] styleCode="Jj Zina in Urine by d">Urine Medical Test strip Ketone Center </content>NEGA TIVE MG/DL<content styleCode="Ginny lics"> (NEGATIVE MG/DL)</conten t> UNK NEGATIVE <content Saint styleCode="Jj Zina d">Urine Medical Bilirubin Center </content>NEGA TIVE <content styleCode="Ginny lics"> (NEGATIVE )</content> UNK CLEAR <content Saint styleCode="Jj Zina d">Urine Medical Clarity Center </content>HAZY <content styleCode="Ginny lics"> (CLEAR )</content> Hemoglobin NEGATIVE <content Saint [Presence] in styleCode="Jj Womacks Urine by Test d">Urine Blood Medical strip </content>NEGA Center TIVE <content styleCode="Ginny lics"> (NEGATIVE )</content> Protein NEGATIVE <content Saint [Mass/volume] styleCode="Jj Womacks in Urine by d">Urine Medical Test strip Protein Center </content>NEGA TIVE MG/DL<content styleCode="Ginny lics"> (NEGATIVE MG/DL)</conten t> pH of Urine by 4.5-8.0 <content Saint Test strip styleCode="Jj Zina d">Urine pH Medical </content>6.0 Center NM<content styleCode="Ginny lics"> (4.5-8.0 NM)</content> Specific 1.015-1.02 <content Saint gravity of 5 styleCode="Jj Womacks Urine by Test d">Urine Medical strip Specific Center [place] </content>1.02 5 NM<content styleCode="Ginny lics"> (1.015-1.025 NM)</content> Urobilinogen 0.2-1.0 <content Saint [Units/volume] styleCode="Jj Zina in Urine by d">Urine Medical Test strip Urobilinogen Center </content>0.2 MG/DL<content styleCode="Ginny lics"> (0.2-1.0 MG/DL)</conten t> Leukocyte NEGATIVE <content Saint esterase styleCode="Jj Izaguirre [Presence] in d">Urine Medical Urine by Test Leukocyte Center strip </content>TRAC E <content styleCode="Ginny lics"> (NEGATIVE )</content> Nitrite NEGATIVE <content Saint [Presence] in styleCode="Jj Izaguirre Urine by Test d">Urine Medical strip Nitrite Center </content>NEGA TIVE <content styleCode="Ginny lics"> (NEGATIVE )</content> Ketones NEGATIVE <content Saint [Mass/volume] styleCode="Jj Izaguirre in Urine by d">Urine Medical Test strip Ketone Center </content>NEGA TIVE MG/DL<content styleCode="Ginny lics"> (NEGATIVE MG/DL)</conten t> UNK NEGATIVE <content Saint styleCode="Jj Womacks d">Urine Medical Bilirubin Center </content>NEGA TIVE <content styleCode="Ginny lics"> (NEGATIVE )</content> Glucose NEGATIVE <content Saint [Mass/volume] styleCode="Jj Izaguirre in Urine by d">Urine Medical Test strip Glucose Center </content>NEGA TIVE MG/DL<content styleCode="Ginny lics"> (NEGATIVE MG/DL)</conten t> UNK CLEAR <content Saint styleCode="Jj Womacks d">Urine Medical Clarity Center </content>Sl CLOUDY <content styleCode="Ginny lics"> (CLEAR )</content> Color of Urine YELLOW <content Saint styleCode="Jj Zina d">Color, Medical Urine Center </content>PINK <content styleCode="Ginny lics"> (YELLOW )</content> Protein NEGATIVE <content Saint [Mass/volume] styleCode="Jj Izaguirre in Urine by d">Urine Medical Test strip Protein Center </content>TRAC E MG/DL<content styleCode="Ginny lics"> (NEGATIVE MG/DL)</conten t> pH of Urine by 4.5-8.0 <content Saint Test strip styleCode="Jj Zina d">Urine pH Medical </content>7.0 Center <content styleCode="Ginny lics"> (4.5-8.0 )</content> Hemoglobin NEGATIVE <content Saint [Presence] in styleCode="Jj Zina Urine by Test d">Urine Blood Medical strip </content>LARG Center E <content styleCode="Ginny lics"> (NEGATIVE )</content> Specific 1.015-1.02 Below low normal <content Saint gravity of 5 styleCode="Jj Zina Urine by Test d">Urine Medical strip Specific Center [place] </content>1.01 0 L<content styleCode="Ginny lics"> (1.015-1.025 )</content> UNK 0-3 <content Saint styleCode="Jj Zina d">Urine White Medical Blood Cell Center </content>0-3 HPF<content styleCode="Ginny lics"> (0-3 HPF)</content> UNK 0-3 <content Saint styleCode="Jj Zina d">Urine Red Medical Blood Cell Center </content>100- 200 HPF<content styleCode="Ginny lics"> (0-3 HPF)</content> Leukocyte NEGATIVE <content Saint esterase styleCode="Jj Zina [Presence] in d">Urine Medical Urine by Test Leukocyte Center strip </content>NEGA TIVE <content styleCode="Ginny lics"> (NEGATIVE )</content> Nitrite NEGATIVE <content Saint [Presence] in styleCode="Jj Zina Urine by Test d">Urine Medical strip Nitrite Center </content>NEGA TIVE <content styleCode="Ginny lics"> (NEGATIVE )</content> Urobilinogen 0.2-1.0 <content Saint [Units/volume] styleCode="Jj Zina in Urine by d">Urine Medical Test strip Urobilinogen Center </content>0.2 MG/DL<content styleCode="Ginny lics"> (0.2-1.0 MG/DL)</conten t> UNK <content Saint styleCode="Jj Zina d">Epithelial Medical Cell Center </content>5 - 10 LPF (Reference Range: not available)<br/ > UNK NEGATIVE <content Saint styleCode="Jj Zina d">Urine Medical Bacteria Center </content>MODE RATE HPF<content styleCode="Ginny lics"> (NEGATIVE HPF)</content> ID Date Data Source [id number] 02/07/2019 11:41:02 AM EDT [facility] [id number] Corporation Name Value Range Interpretation Description Data Sup porting Code Source(s) Document(s ) Magnesium Neurophysiol <td> 02/07/2019 [facility] [Mass/volu ogy </td><td> [facility]] in NAME: [facility] Serum or [employer] Plasma SCOTT </td><td>
<br/ MR#: >

[id number] Neurophysiology ADMIT DATE: 02/04/2019

SERVICE NAME: IVY, DATE: SCOTT 02/04/2019
MR#: DISCHARGE [id number] DATE:
ADMIT BILLING DATE: 02/04/2019 NUMBER:
[id number] SERVICE DATE: TEST DATE: 02/04/2019 02/04/2019
LOG: DISCHARGE DATE: .
DATE OF BILLING NUMBER: : [id number] 1985.

AGE: TEST DATE: . 02[facility]04/2019 [facility]

PHYSICIAN: DATE OF : Fred Guerra M.D. 1985. HISTORY

AND AGE: 33. CONDITIONS

OF LOCATION: [address]. RECORDING: This is a

24-hour REFERRING bedside PHYSICIAN: Fred 18nicky Guerra M.D. digital

video EEG HISTORY AND recording on CONDITIONS OF a RECORDING: This 33-year-old is a 24-hour woman with a bedside 18-channel history of
intractable digital video complex EEG recording on a partial 33-year-old woman seizures. with a history of
INDICATIONS intractable FOR complex partial MONITORING: seizures. 1. To

capture the INDICATIONS FOR habitual MONITORING: clinical
1. events and To capture the establish habitual clinical electroclini events and carlota establish correlations electroclinical . 2. To
document correlations. ictal or
2. interictal To document ictal epileptiform or interictal abnormalitie epileptiform s. abnormalities. BACKGROUND

ACTIVITY: BACKGROUND The patient ACTIVITY: The is awake. patient is awake. Her seizure Her seizure medications medications have have been
discontinued been discontinued. . The The posterior posterior dominant rhythm is dominant slow and consists rhythm is of slow and
consists of intermittently intermitten rhythmic 6-7 Hz tly rhythmic activity. The 6-7 Hz background shows a activity.
The predominance of background generalized shows a intermittently predominance rhythmic 6-7 Hz of theta activity generalized
intermittent intermixed with ly rhythmic low voltage fast 6-7 Hz theta frequencies. activity

intermixed INTERICTAL with low EPILEPTIFORM voltage fast ABNORMALITIES: frequencies. Frequent high-voltage INTERICTAL independent EPILEPTIFORM
ABNORMALITIE spikes are noted S: Frequent in the right and high-voltage left independent frontal-temporal spikes are regions, noted in the
right and especially during left drowsiness and frontal-temp sleep. The oral interictal spiking regions, is more especially
during prominent on the drowsiness right side with and sleep. occasional The reflection on the interictal left side. spiking is

more ICTAL EPILEPTIFORM prominent on ABNORMALITIES: the right Intermittent side with rhythmic 4-5 Hz occasional theta reflection
activity on the left is seen side. independently in ICTAL both temporal EPILEPTIFORM regions lasting ABNORMALITIE for 10-15 S:
Intermittent seconds without rhythmic 4-5 clear evidence of Hz theta electrographic activity is ictal evolution or seen
independentl clinical y in both changes. temporal

regions CLINICAL EVENTS: lasting for None. 10-15

seconds IMPRESSION: This without 24-hour bedside clear video EEG evidence of recording is electrograph abnormal because ic ictal
evolution or of: clinical
1. changes. Generalized theta CLINICAL slowing of the EVENTS: background. None.
2. IMPRESSION: Frequent This 24-hour independent bedside interictal spikes video EEG involving both recording is anterior head abnormal
because regions. This is of: 1. maximally Generalized involving the theta frontal and slowing of anterior temporal the
background. regions with 2. greater Frequent involvement of the independent right side. interictal
3. spikes Intermittent involving rhythmic theta both activity in both anterior temporal regions head without regions.
clearly This is defined maximally electrographic involving ictal evolution or the frontal behavioral and anterior changes. temporal

regions with CLINICAL greater CORRELATION: This involvement record is of the right indicative of side. 3. moderate to marked Intermittent
rhythmic degree of theta independent activity in bilateral both frontal-temporal temporal hyperexcitability regions and without
active clearly potential for defined partial onset electrograph seizures. It ic ictal should be noted evolution or that the behavioral
changes. interictal spiking CLINICAL is independent CORRELATION: with implication This record for possible is surgical indicative
of moderate intervention. to marked degree of

<br independent />
DICT: bilateral RITA CHRISTENSEN frontal-temp
oral 06 20 hyperexcitab PM ility and
active potential 00:24:26/IN for partial
onset seizures.

It should be noted that the === END OF interictal DOCUMENT / CHANGE spiking is LOG FOLLOWS independent with implication

for possible surgical intervention Elec. Signed By .
DICT: RITA CHRISTENSEN DD: RITA CHRISTENSEN 02/06/19 06 #[id number] 20 PM
DT: 9 on 00:24:26/IN 02/07/2019 07:35 Job#: [id number]

</td> ========= END OF DOCUMENT / CHANGE LOG FOLLOWS ===== Elec. Signed By RITA CHRISTENSEN #[id number] on 02/07/2019 07:35 ET Magnesium Neurophysiol <td> 02/07/2019 [facility] [Mass/volu ogy </td><td> [facility]] in NAME: Neurophysiology [facility] Serum or [employer] Plasma SCOTT </td><td>
<br/ MR#: >

[id number] Neurophysiology ADMIT DATE: 02/04/2019

SERVICE NAME: IVY, DATE: SCOTT 02/04/2019
MR#: DISCHARGE [id number] DATE:
ADMIT BILLING DATE: 02/04/2019 NUMBER:
[id number] SERVICE DATE: TEST DATE: 02/04/2019 02/04/2019
LOG: DISCHARGE DATE: .
DATE OF BILLING NUMBER: : [id number] 1985.

AGE: TEST DATE: . 02/04/2019 LOCATION:

[address]. LO. REFERRING

PHYSICIAN: DATE OF : Fred Guerra M.D. 1985. HISTORY

AND AGE: 33. CONDITIONS

OF LOCATION: [address]A. RECORDING: This is a

24-hour REFERRING bedside PHYSICIAN: Fred 18nicky Guerra M.D. digital

video EEG HISTORY AND recording on CONDITIONS OF a RECORDING: This 33-year-old is a 24-hour woman with a bedside 18-channel history of
intractable digital video complex EEG recording on a partial 33-year-old woman seizures. with a history of
INDICATIONS intractable FOR complex partial MONITORING: seizures. 1. To

capture the INDICATIONS FOR habitual MONITORING: clinical
1. events and To capture the establish habitual clinical electroclini events and carlota establish correlations electroclinical . 2. To
document correlations. ictal or
2. interictal To document ictal epileptiform or interictal abnormalitie epileptiform s. abnormalities. BACKGROUND

ACTIVITY: BACKGROUND The patient ACTIVITY: The is awake. patient is awake. Her seizure Her seizure medications medications have have been
discontinued been discontinued. . The The posterior posterior dominant rhythm is dominant slow and consists rhythm is of slow and
consists of intermittently intermitten rhythmic 6-7 Hz tly rhythmic activity. The 6-7 Hz background shows a activity.
The predominance of background generalized shows a intermittently predominance rhythmic 6-7 Hz of theta activity generalized
intermittent intermixed with ly rhythmic low voltage fast 6-7 Hz theta frequencies. activity

intermixed INTERICTAL with low EPILEPTIFORM voltage fast ABNORMALITIES: frequencies. Frequent high-voltage INTERICTAL independent EPILEPTIFORM
ABNORMALITIE spikes are noted S: Frequent in the right and high-voltage left independent frontal-temporal spikes are regions, noted in the
right and especially during left drowsiness and frontal-temp sleep. The oral interictal spiking regions, is more especially
during prominent on the drowsiness right side with and sleep. occasional The reflection on the interictal left side. spiking is

more ICTAL EPILEPTIFORM prominent on ABNORMALITIES: the right Intermittent side with rhythmic 4-5 Hz occasional theta reflection
activity on the left is seen side. independently in ICTAL both temporal EPILEPTIFORM regions lasting ABNORMALITIE for 10-15 S:
Intermittent seconds without rhythmic 4-5 clear evidence of Hz theta electrographic activity is ictal evolution or seen
independentl clinical y in both changes. temporal

regions CLINICAL EVENTS: lasting for None. 10-15

seconds IMPRESSION: This without 24-hour bedside clear video EEG evidence of recording is electrograph abnormal because ic ictal
evolution or of: clinical
1. changes. Generalized theta CLINICAL slowing of the EVENTS: background. None.
2. IMPRESSION: Frequent This 24-hour independent bedside interictal spikes video EEG involving both recording is anterior head abnormal
because regions. This is of: 1. maximally Generalized involving the theta frontal and slowing of anterior temporal the
background. regions with 2. greater Frequent involvement of the independent right side. interictal
3. spikes Intermittent involving rhythmic theta both activity in both anterior temporal regions head without regions.
clearly This is defined maximally electrographic involving ictal evolution or the frontal behavioral and anterior changes. temporal

regions with CLINICAL greater CORRELATION: This involvement record is of the right indicative of side. 3. moderate to marked Intermittent
rhythmic degree of theta independent activity in bilateral both frontal-temporal temporal hyperexcitability regions and without
active clearly potential for defined partial onset electrograph seizures. It ic ictal should be noted evolution or that the behavioral
changes. interictal spiking CLINICAL is independent CORRELATION: with implication This record for possible is surgical indicative
of moderate intervention. to marked degree of

<br independent />
DICT: bilateral RITA CHRISTENSEN frontal-temp
oral 06 20 hyperexcitab PM ility and
active potential 00:24:26/IN for partial
onset seizures.

It should be noted that the === END OF interictal DOCUMENT / CHANGE spiking is LOG FOLLOWS independent with implication

for possible surgical intervention Elec. Signed By .
DICT: IRTA CHRISTENSEN DD: RITA CHRISTENSEN 02/06/19 06 #[id number] 20 PM
DT: 9 on 00:24:26/IN 02/07/2019 07:35 Job#: [id number]

</td> ========= END OF DOCUMENT / CHANGE LOG FOLLOWS ===== Elec. Signed By RITA CHRISTENSEN #[id number] on 02/07/2019 07:35 ET ID Date Data Source [id number] 02/07/2019 11:41:02 AM EDT [facility] [id number] Corporation Name Value Range Interpretation Description Data Sup porting Code Source(s) Document(s ) Leukocytes 3.6 k/mm3 4.5-10 <td> 02/07/2019 [facility] [#/volume] in .8 07:21</td><td> [facility] Blood by k/mm3 [facility] Automated count </td><td><[employer] [place] [employer] raph styleCode="Bold "> 3.6 L </paragraph>
(4.5-10.8) k/mm3 </td> Erythrocytes 3.41 m/mm3 3.80-5 <td> 02/07/2019 [facility] r [#/volume] in .10 07:21</td><td> [facility] Blood m/mm3 RBC [facility] </td><td><[employer] raph styleCode="Bold "> 3.41 L </paragraph>
(3.80-5.10) m/mm3 </td> Hemoglobin 9.9 g/dL 11.6-1 <td> 02/07/2019 [facility] [Mass/volume] 5.0 07:21</td><td> [facility] in Blood g/dL [facility] </td><td><[employer] raph styleCode="Bold "> 9.9 L </paragraph>
(11.6-15.0) g/dL </td> Erythrocyte 94.1 fL 80.0-9 <td> 02/07/2019 [facility] mean 6.0 fL 07:21</td><td> [facility] corpus[facility] </td><td> [facility] volume [[employer] volume] by 94.1 Automated count
(80.0-96.0) fL </td> Erythrocyte 29.0 pg 27.0-3 <td> 02/07/2019 [facility] mean 1.5 pg 07:21</td><td> [facility] corpuscular [facility] </td><td> Health Care hemoglobin Corporation [[employer] mass] 29.0 by Automated count
(27.0-31.5) pg </td> Erythrocyte 30.8 % 32.0-3 <td> 02/07/2019 [facility] mean 6.0 % 07:21</td><td> [facility] corpuscular [facility] hemoglobin </td><td><[employer] concentration raph [Mass/volume] styleCode="Bold in Blood from "> Fetus by 30.8 Automated count L </paragraph>
(32.0-36.0) % </td> Hematocrit 32.1 % 36.0-4 <td> 02/07/2019 [facility] [Volume 5.0 % 07:21</td><td> County Fraction] of [facility] Blood by </td><td><[employer] Automated count raph styleCode="Bold "> 32.1 L </paragraph>
(36.0-45.0) % </td> Erythrocyte 14.6 % 11.5-1 <td> 02/07/2019 [facility] distribution 4.5 % 07:21</td><td> County width [Entitic RDW Health Care volume] by </td><td><[employer] Automated count raph styleCode="Bold "> 14.6 H </paragraph>
(11.5-14.5) % </td> Basophils+Eosin 1.7 % 0.0-5. <td> 02/04/2019 [facility] ophils+Monocyte 0 % 12:05</td><td> County s [#/volume] in Eosinophils Health Care Blood by </td><td> Corporation Automated count 1.7
(0.0-5.0) % </td> Lymphocytes 28.7 % 18.0-5 <td> 02/04/2019 [facility] [#/volume] in 3.0 % 12:05</td><td> [facility] Blood by Lymphocytes [facility] Automated count </td><td> [employer] 28.7
(18.0-53.0) % </td> Platelet mean 11.3 fL 9.8-12 <td> 02/07/2019 [facility] r volume [Entitic .8 fL 07:21</td><td> County volume] in MPV </td><td> [facility] Blood by [employer] Automated count 11.3
(9.8-12.8) fL </td> Monocytes/Leuko 5.6 % 0.0-11 <td> 02/04/2019 [facility] cytes [Pure .0 % 12:05</td><td> County number Monocytes. [facility] fraction] in </td><td> [facility] Blood by Automated count 5.6
(0.0-11.0) % </td> Platelets 251 k/mm3 160-41 <td> 02/07/2019 [facility] [#/volume] in 0 07:21</td><td> [facility] Blood by k/mm3 Platelet Count [facility] Automated count </td><td> [employer] 251
(160-410) k/mm3 </td> Immature 0.4 % 0.0-0. <td> 02/04/2019 [facility] granulocytes/10 5 % 12:05</td><td> [facility] 0 leukocytes in IG% </td><td> [facility] Blood by [employer] Automated count 0.4
(0.0-0.5) %
The IG fraction represents metamyelocytes, myelocytes and/or
promyelocytes and is only reported as part of the automated
differential when found at a percentage of less than 6.
If higher than 6%, a manual differential will be performed.

(0.0-0.5) % </td> Sodium 138 mEq/L 135-14 <td> 02/07/2019 [facility] [Moles/volume] 5 07:21</td><td> County in Serum or mEq/L Sodium-Serum Health Care Plasma </td><td> Corporation 138
(135-145) mEq/L </td> Basophils 0.6 % 0.0-2. <td> 02/04/2019 [facility] [#/volume] in 0 % 12:05</td><td> County Blood by Basophils Health Care Automated count </td><td> Corporation 0.6
(0.0-2.0) % </td> Neutrophils [#] 63.0 % 36.0-7 <td> 02/04/[address] [facility] [address] in Body fluid 3.0 % 12:05</td><td> County by Manual count Neutrophils Health Care </td><td> [employer] 63.0
(36.0-73.0) % </td> Glucose 79 mg/dL 70-105 <td> 02/07/2019 [facility] [Mass/volume] mg/dL 07:21</td><td> County in Blood Glucose-Serum Health Care </td><td> [employer] 79
(70-105) mg/dL </td> Creatinine 0.70 mg/dL 0.57-1 <td> 02/07/2019 [facility] [Moles/volume] .11 07:21</td><td> County in Serum or mg/dL Creatinine. Health Care Plasma </td><td> [employer] 0.70
(0.57-1.11) mg/dL </td> Potassium 4.0 mEq/L 3.5-5. <td> 02/07/2019 [facility] [Moles/volume] 1 07:21</td><td> County in Serum or mEq/L Potassium-Serum Health Care Plasma </td><td> [employer] 4.0
(3.5-5.1) mEq/L </td> Carbon dioxide, 25 mEq/L 22-30 <td> 02/07/2019 [facility] total mEq/L 07:21</td><td> [facility] [Moles/volume] CO2 </td><td> Health Car e in Serum or Corporation Plasma 25
(22-30) mEq/L </td> Urea nitrogen 11 mg/dL 6-22 <td> [facility] [Mass/volume] mg/dL 07:21</td><td> County in Blood BUN </td><td> Health Care [employer] 11
(6-22) mg/dL </td> Chloride 104 mEq/L 98-107 <td> 02/07/2019 [facility] [Moles/volume] mEq/L 07:21</td><td> County in Serum or Chloride Health Care Plasma </td><td> [employer] 104
(98-107) mEq/L </td> Aspartate 14 U/L 4-35 <td> 02/04/2019 [facility] aminotransferas U/L 12:05</td><td> County e [Enzymatic AST (SGOT) Health Care activity/volume </td><td> [employer] ] in Serum or Plasma 14
(4-35) U/L </td> Albumin 4.0 g/dL 3.4-4. <td> 02/04/2019 [facility] [Mass/volume] 8 g/dL 12:05</td><td> [facility] in Serum or Albumin Health Care Plasma </td><td> [employer] 4.0
(3.4-4.8) g/dL </td> Alanine 12 U/L 6-55 <td> 02/04/2019 [facility] aminotransferas U/L 12:05</td><td> County e [Enzymatic ALT (SGPT) Health Care activity/volume </td><td> [employer] ] in Serum or Plasma 12
(6-55) U/L </td> Proteins - 8.0 g/dL 6.4-8. <td> 02/04/2019 [facility] Total 3 g/dL 12:05</td><td> [facility] Proteins - Health Care Total [employer] </td><td> 8.0
(6.4-8.3) g/dL </td> Bilirubin.total 0.4 mg/dL 0.2-1. <td> 02/04/2019 [facility] [Mass/volume] 3 12:05</td><td> County in Blood mg/dL Bilirubin - Health Care Total [facility] </td><td> 0.4
(0.2-1.3) mg/dL </td> Globulin 4.0 gm/dL 2.9-4. <td> 02/04/2019 [facility] [Mass/volume] 0 12:05</td><td> County in Serum gm/dL Globulin [facility] Care </td><td> [employer] 4.0
(2.9-4.0) gm/dL </td> Calcium 9.9 mg/dL 8.6-10 <td> 02/07/2019 [facility] [Mass/volume] .2 07:21</td><td> [facility] in Blood mg/dL Calcium [facility] </td><td> [employer] 9.9
(8.6-10.2) mg/dL </td> Anion gap in 9 mEq/L 7-13 <td> 02/07/2019 [facility] Serum or Plasma mEq/L 07:21</td><td> [facility] Anion Gap [facility] </td><td> [facility] 9
(7-13) mEq/L </td> Hemolysis index No <td> 02/07/2019 [facility] of Serum or Hemolysis 07:21</td><td> [facility] Plasma Hemolysis Index [facility] </td><td> [facility] No Hemolysis
</td> aPTT panel - 34.3 secs 25.0-3 <td> 02/07/2019 [facility] Platelet poor 2.0 07:21</td><td> [facility] plasma secs Partial [facility] Thromboplastin [facility] Time </td><td><nicolas raph styleCode="Bold "> 34.3 H </paragraph>
(25.0-32.0) secs </td> Prothrombin 11.0 secs 9.8-12 <td> 02/07/2019 [facility] time (PT) .0 07:21</td><td> [facility] secs Prothrombin Health Care Time. [facility] </td><td> 11.0
(9.8-12.0) secs </td> Icteric index Not <td> 02/07/2019 [facility] r of Serum or Icteric 07:21</td><td> [facility] Plasma Icteric Index [facility] </td><td> [facility] Not Icteric
</td> Phosphate 3.4 mg/dL 2.3-4. <td> 02/07/2019 [facility] [Mass/volume] 7 07:21</td><td> [facility] in Serum or mg/dL Inorganic [facility] Plasma Phosphorus [facility] </td><td> 3.4
(2.3-4.7) mg/dL </td> Lipemic index No Lipemia <td> 02/07/2019 [facility] er of Serum or 07:21</td><td> [facility] Plasma Lipemia Index [facility] </td><td> [facility] No Lipemia
</td> Appearance of Slightly-C <td> 02/04/2019 [facility] er Urine loudy 11:47</td><td> [facility] Appearance [facility] </td><td> [employer] Slightly-Cloudy
(CLEAR) </td> Specific 1.025 {} 1.000- <td> 02/04/2019 [facility] gravity of 1.035 11:47</td><td> [facility] Urine by Test Specific Health Care strip [employer] </td><td> 1.025
(1.000-1.035) </td> Protein 1+ (30 <td> 02/04/2019 [facility] [Presence] in MG/DL) 11:47</td><td> [facility] Urine by Protein Health Care Automated test [employer] strip </td><td> 1+ (30 MG/DL)
(NEGATIVE) </td> Urobilinogen 4.0 mg/dL 0.0-2. <td> 02/04/2019 [facility] [Presence] in 0 11:47</td><td> [facility] Urine by mg/dL Urobilinogen Health Care Automated test </td><td><nicolas Corporati on strip raph styleCode="Bold "> 4.0 H </paragraph>
(0.0-2.0) mg/dL </td> Glucose Negative <td> 02/04/2019 [facility] [Presence] in 11:47</td><td> [facility] Urine by Test Glucose_ Health Care strip </td><td> Corporation Negative
(NEGATIVE) </td> Erythrocytes 1 /HPF 0-2 <td> 02/04/2019 [facility] [#/area] in /HPF 11:47</td><td> [facility] Urine sediment RBC </td><td> Health Car e by [employer]ated [employer] count 1
(0-2) /HPF </td> Leukocytes 3 /HPF 0-5 <td> 02/04/2019 [facility] [Presence] in /HPF 11:47</td><td> [facility] Urine by WBC </td><td> Health Care [employer] 3
(0-5) /HPF </td> Bacteria RARE <td> 02/04/2019 [facility] [#/area] in 11:47</td><td> [facility] Urine sediment Bacteria Health Care by Microscopy </td><td> [employer] high power field RARE
(NONE SEEN) /HPF </td> Nitrite Negative <td> 02/04/2019 [facility] [Presence] in 11:47</td><td> [facility] Urine by Test Nitrites Health Care strip </td><td> Corporation Negative
(NEGATIVE) </td> Leukocyte Negative <td> 02/04/2019 [facility] esterase 11:47</td><td> [facility] [Presence] in Leukocytes Health Care Urine by Test Esterase [employer] strip </td><td> Negative
(NEGATIVE) </td> Amorphous RARE <td> 02/04/2019 [facility] [employer] < FEW 11:47</td><td> [facility] Amorphous Health Care [employer] </td><td> RARE
/HPF
< FEW

/HPF </td> Magnesium 2.0 mg/dL 1.6-2. <td> 02/07/2019 [facility] [Mass/volume] 6 07:21</td><td> County in Serum or mg/dL Magnesium Level Health Care Plasma </td><td> Corporation 2.0
(1.6-2.6) mg/dL </td> Epithelial FEW <td> 02/04/2019 [facility] cells [#/area] FEW 11:47</td><td> County in Urine Epithelial Health Care sediment by Cells [employer] Automated count </td><td> FEW
/LPF
FEW

/LPF </td> Mucous MASSIVE <td> 02/04/2019 [facility] < FEW 11:47</td><td> County Mucous Health Care </td><td> [employer] MASSIVE
/LPF
< FEW

/LPF </td> Leukocytes 3.6 k/mm3 4.5-10 <td> 02/07/2019 [facility] [#/volume] in .8 07:21</td><td> County Blood by k/mm3 WBC Health Care Automated count </td><td><[employer] raph styleCode="Bold "> 3.6 L </paragraph>
(4.5-10.8) k/mm3 </td> Hematocrit 32.1 % 36.0-4 <td> 02/07/2019 [facility] [Volume 5.0 % 07:21</td><td> [facility] Fraction] of [facility] Blood by </td><td><[employer] Automated count raph styleCode="Bold "> 32.1 L </paragraph>
(36.0-45.0) % </td> Hemoglobin 9.9 g/dL 11.6-1 <td> 02/07/2019 [facility] [Mass/volume] 5.0 07:21</td><td> County in Blood g/dL HGB Health Care </td><td><[employer] raph styleCode="Bold "> 9.9 L </paragraph>
(11.6-15.0) g/dL </td> Erythrocytes 3.41 m/mm3 3.80-5 <td> 02/07/2019 [facility] r [#/volume] in .10 07:21</td><td> County Blood m/mm3 RBC Health Care </td><td><[employer] raph styleCode="Bold "> 3.41 L </paragraph>
(3.80-5.10) m/mm3 </td> Erythrocyte 29.0 pg 27.0-3 <td> 02/07/2019 [facility] mean 1.5 pg 07:21</td><td> [facility] corpuscular MCH </td><td> Health Care hemoglobin [employer] [Entitic mass] 29.0 by Automated count
(27.0-31.5) pg </td> Erythrocyte 94.1 fL 80.0-9 <td> 02/07/2019 [facility] mean 6.0 fL 07:21</td><td> [facility] corpuscular MCV </td><td> Health Care volume [[employer] volume] by 94.1 Automated count
(80.0-96.0) fL </td> Platelets 251 k/mm3 160-41 <td> 02/07/2019 [facility] [#/volume] in 0 07:21</td><td> [facility] Blood by k/mm3 Platelet Count Health Care Automated count </td><td> [employer] 251
(160-410) k/mm3 </td> Platelet mean 11.3 fL 9.8-12 <td> 02/07/2019 [facility] r volume [Entitic .8 fL 07:21</td><td> County volume] in MPV </td><td> Health Care Blood by [employer] Automated count 11.3
(9.8-12.8) fL </td> Erythrocyte 14.6 % 11.5-1 <td> 02/07/2019 [facility] distribution 4.5 % 07:21</td><td> County width [Entitic RDW Health Care volume] by </td><td><[employer] Automated count raph styleCode="Bold "> 14.6 H </paragraph>
(11.5-14.5) % </td> Erythrocyte 30.8 % 32.0-3 <td> 02/07/2019 [facility] mean 6.0 % 07:21</td><td> [facility] corpuscular [facility] hemoglobin </td><td><nicolas [employer] concentration raph [Mass/volume] styleCode="Bold in Blood from "> Fetus by 30.8 Automated count L </paragraph>
(32.0-36.0) % </td> Basophils 0.6 % 0.0-2. <td> 02/04/2019 [facility] [#/volume] in 0 % 12:05</td><td> [facility] Blood by Basophils [facility] Automated count </td><td> [employer] 0.6
(0.0-2.0) % </td> Basophils+Eosin 1.7 % 0.0-5. <td> 02/04/2019 [facility] ophils+Monocyte 0 % 12:05</td><td> County s [#/volume] in Eosinophils Health [facility] Blood by </td><td> [employer] Automated count 1.7
(0.0-5.0) % </td> Monocytes/Leuko 5.6 % 0.0-11 <td> 02/04/2019 [facility] cytes [Pure .0 % 12:05</td><td> [facility] number Monocytes. Health Care fraction] in </td><td> [facility] Blood by Automated count 5.6
(0.0-11.0) % </td> Lymphocytes 28.7 % 18.0-5 <td> 02/04/2019 [facility] [#/volume] in 3.0 % 12:05</td><td> [facility] Blood by Lymphocytes Health Care Automated count </td><td> [employer] 28.7
(18.0-53.0) % </td> Neutrophils [#] 63.0 % 36.0-7 <td> 02/04/2019 [facility] in Body fluid 3.0 % 12:05</td><td> [facility] by Manual count Neutrophils Health Care </td><td> [employer] 63.0
(36.0-73.0) % </td> Immature 0.4 % 0.0-0. <td> 02/04/2019 [facility] granulocytes/10 5 % 12:05</td><td> County 0 leukocytes in IG% </td><td> [facility] re Blood by [employer] Automated count 0.4
(0.0-0.5) %
The IG fraction represents metamyelocytes, myelocytes and/or
promyelocytes and is only reported as part of the automated
differential when found at a percentage of less than 6.
If higher than 6%, a manual differential will be performed.

(0.0-0.5) % </td> Chloride 104 mEq/L 98-107 <td> 02/07/2019 [facility] [Moles/volume] mEq/L 07:21</td><td> County in Serum or Chloride Health Care Plasma </td><td> [employer] 104
(98-107) mEq/L </td> Potassium 4.0 mEq/L 3.5-5. <td> 02/07/2019 [facility] [Moles/volume] 1 07:21</td><td> County in Serum or mEq/L Potassium-Serum Health Care Plasma </td><td> [employer] 4.0
(3.5-5.1) mEq/L </td> Sodium 138 mEq/L 135-14 <td> 02/07/2019 [facility] [Moles/volume] 5 07:21</td><td> County in Serum or mEq/L Sodium-Serum Health Care Plasma </td><td> [employer] 138
(135-145) mEq/L </td> Glucose 79 mg/dL 70-105 <td> 02/07/2019 [facility] [Mass/volume] mg/dL 07:21</td><td> County in Blood Glucose-Serum Health Care </td><td> [employer] 79
(70-105) mg/dL </td> Aspartate 14 U/L 4-35 <td> 02/04/2019 [facility] aminotransferas U/L 12:05</td><td> County e [Enzymatic AST (SGOT) Health Care activity/volume </td><td> Corporation ] in Serum or Plasma 14
(4-35) U/L </td> Creatinine 0.70 mg/dL 0.57-1 <td> 02/07/2019 [facility] [Moles/volume] .11 07:21</td><td> County in Serum or mg/dL Creatinine. Health Care Plasma </td><td> [employer] 0.70
(0.57-1.11) mg/dL </td> Urea nitrogen 11 mg/dL 6-22 <td> 02/07/2019 [facility] r [Mass/volume] mg/dL 07:21</td><td> County in Blood BUN </td><td> [facility] Corporation 11
(6-22) mg/dL </td> Carbon dioxide, 25 mEq/L 22-30 <td> 02/07/2019 [facility] total mEq/L 07:21</td><td> [facility] [Moles/volume] CO2 </td><td> Health Car e in Serum or Corporation Plasma 25
(22-30) mEq/L </td> Albumin 4.0 g/dL 3.4-4. <td> 02/04/2019 [facility] [Mass/volume] 8 g/dL 12:05</td><td> County in Serum or Albumin Health Care Plasma </td><td> [employer] 4.0
(3.4-4.8) g/dL </td> Proteins - 8.0 g/dL 6.4-8. <td> 02/04/2019 [facility] Total 3 g/dL 12:05</td><td> [facility] Proteins - [facility] [employer] </td><td> 8.0
(6.4-8.3) g/dL </td> Bilirubin.total 0.4 mg/dL 0.2-1. <td> 02/04/[address] [facility] [address] [Mass/volume] 3 12:05</td><td> County in Blood mg/dL Bilirubin - [employer] </td><td> 0.4
(0.2-1.3) mg/dL </td> Alanine 12 U/L 6-55 <td> 02/04/2019 [facility] aminotransferas U/L 12:05</td><td> County e [Enzymatic ALT (SGPT) Health Care activity/volume </td><td> [facility] ] in Serum or Plasma 12
(6-55) U/L </td> Hemolysis index No <td> 02/07/2019 [facility] of Serum or Hemolysis 07:21</td><td> [facility] Plasma Hemolysis Index Health Care </td><td> [facility] No Hemolysis
</td> Globulin 4.0 gm/dL 2.9-4. <td> 02/04/2019 [facility] [Mass/volume] 0 12:05</td><td> [facility] in Serum gm/dL Globulin Health Care </td><td> [employer] 4.0
(2.9-4.0) gm/dL </td> Anion gap in 9 mEq/L 7-13 <td> 02/07/2019 [facility] Serum or Plasma mEq/L 07:21</td><td> [facility] Anion Gap Health Care </td><td> [employer] 9
(7-13) mEq/L </td> Calcium 9.9 mg/dL 8.6-10 <td> 02/07/2019 [facility] [Mass/volume] .2 07:21</td><td> [facility] in Blood mg/dL Calcium Health Care </td><td> [employer] 9.9
(8.6-10.2) mg/dL </td> Prothrombin 11.0 secs 9.8-12 <td> 02/07/2019 [facility] time (PT) .0 07:21</td><td> [facility] secs Prothrombin Health Care Time. [facility] </td><td> 11.0
(9.8-12.0) secs </td> Phosphate 3.4 mg/dL 2.3-4. <td> 02/07/2019 [facility] [Mass/volume] 7 07:21</td><td> [facility] in Serum or mg/dL Inorganic Health Care Plasma Phosphorus [facility] </td><td> 3.4
(2.3-4.7) mg/dL </td> Icteric index Not <td> 02/07/2019 [facility] r of Serum or Icteric 07:21</td><td> [facility] Plasma Icteric Index Health Care </td><td> [employer] Not Icteric
</td> Lipemic index No Lipemia <td> 02/07/2019 [facility] er of Serum or 07:21</td><td> [facility] Plasma Lipemia Index Health Care </td><td> [employer] No Lipemia
</td> Glucose Negative <td> 02/04/2019 [facility] [Presence] in 11:47</td><td> [facility] Urine by Test Glucose_ Health Care strip </td><td> [employer] Negative
(NEGATIVE) </td> Protein 1+ (30 <td> 02/04/2019 [facility] [Presence] in MG/DL) 11:47</td><td> [facility] Urine by Protein Health Care Automated test [employer] strip </td><td> 1+ (30 MG/DL)
(NEGATIVE) </td> Specific 1.025 {} 1.000- <td> 02/04/2019 [facility] gravity of 1.035 11:47</td><td> [facility] Urine by Test Specific Health Care strip [employer] </td><td> 1.025
(1.000-1.035) </td> Appearance of Slightly-C <td> 02/04/2019 [facility] er Urine loudy 11:47</td><td> [facility] Appearance Health Care </td><td> [employer] Slightly-Cloudy
(CLEAR) </td> aPTT panel - 34.3 secs 25.0-3 <td> 02/07/2019 [facility] Platelet poor 2.0 07:21</td><td> [facility] plasma secs Partial [facility] Care Thromboplastin [employer] Time </td><td><nicolas raph styleCode="Bold "> 34.3 H </paragraph>
(25.0-32.0) secs </td> Erythrocytes 1 /HPF 0-2 <td> 02/04/2019 [facility] [#/area] in /HPF 11:47</td><td> [facility] Urine sediment RBC </td><td> Health Car e by [employer] count 1
(0-2) /HPF </td> Leukocytes 3 /HPF 0-5 <td> 02/04/2019 [facility] [Presence] in /HPF 11:47</td><td> [facility] Urine by WBC </td><td> Health Care [employer] 3
(0-5) /HPF </td> Leukocyte Negative <td> 02/04/2019 [facility] esterase 11:47</td><td> County [Presence] in Leukocytes Health Care Urine by Test [employer] strip </td><td> Negative
(NEGATIVE) </td> Nitrite Negative <td> 02/04/2019 [facility] [Presence] in 11:47</td><td> [facility] Urine by Test Nitrites Health Care strip </td><td> Corporation Negative
(NEGATIVE) </td> Urobilinogen 4.0 mg/dL 0.0-2. <td> 02/04/2019 [facility] [Presence] in 0 11:47</td><td> [facility] Urine by mg/dL Urobilinogen Health Care Automated test </td><td><nicolas Corporati on strip raph styleCode="Bold "> 4.0 H </paragraph>
(0.0-2.0) mg/dL </td> Mucous MASSIVE <td> 02/04/2019 [facility] < FEW 11:47</td><td> [facility] Mucous Health Care </td><td> Corporation MASSIVE
/LPF
< FEW

/LPF </td> Amorphous RARE <td> 02/04/2019 [facility] [employer] < FEW 11:47</td><td> [facility] Amorphous Health Care [employer] </td><td> RARE
/HPF
< FEW

/HPF </td> Epithelial FEW <td> 02/04/2019 [facility] cells [#/area] FEW 11:47</td><td> County in Urine Epithelial Health Care sediment by Cells [employer] Automated count </td><td> FEW
/LPF
FEW

/LPF </td> Bacteria RARE <td> 02/04/2019 [facility] [#/area] in 11:47</td><td> County Urine sediment Bacteria Health Care by Microscopy </td><td> [employer] high power field RARE
(NONE SEEN) /HPF </td> Magnesium 2.0 mg/dL 1.6-2. <td> 02/07/2019 [facility] [Mass/volume] 6 07:21</td><td> County in Serum or mg/dL Magnesium Level Health Care Plasma </td><td> [employer] 2.0
(1.6-2.6) mg/dL </td> Procedure Social History Code Duration Value Status Description Data Source(s ) Smoking 08/23/2020 Denies Ever completed Denies Ever Smoked [facility] 12:05:00 AM EDT [facility] enter Smoking 08/22/2020 Denies Ever completed Denies Ever Smoked [facility] 11:48:00 PM EDT [facility] enter Smoking 03/11/2020 Denies Ever completed Denies Ever Smoked [facility] 06:39:00 PM EDT [facility] enter Smoking 03/11/2020 Denies Ever completed Denies Ever Smoked [facility] 06:39:00 PM EDT [facility] enter Smoking 11/13/2019 Denies Ever completed Denies Ever Smoked [facility] 05:48:00 AM EST [facility] enter Smoking 11/13/2019 Denies Ever completed Denies Ever Smoked [facility] 05:41:00 AM EST [facility] enter Smoking 11/13/2019 Denies Ever completed Denies Ever Smoked [facility] 05:41:00 AM EST [facility] enter Smoking 10/25/2019 Denies Ever completed Denies Ever Smoked [facility] 04:31:00 AM EST [facility] enter Smoking 10/25/2019 Denies Ever completed Denies Ever Smoked [facility] 04:06:00 AM EST [facility] enter Smoking 10/25/2019 Denies Ever completed Denies Ever Smoked [facility] 04:03:00 AM EST [facility] enter Smoking 10/24/2019 Denies Ever completed Denies Ever Smoked [facility] 11:33:00 PM EST [facility] enter Smoking 10/24/2019 Denies Ever completed Denies Ever Smoked [facility] 11:30:00 PM EST [facility] enter Smoking 10/21/2019 Denies Ever completed Denies Ever Smoked [facility] 02:01:00 AM EST [facility] enter Smoking 10/21/2019 Denies Ever completed Denies Ever Smoked [facility] 12:37:00 AM EST [facility] enter Smoking 10/15/2019 Denies Ever completed Denies Ever Smoked [facility] 08:37:00 AM EST [facility] enter Smoking 10/15/2019 Denies Ever completed Denies Ever Smoked [facility] 08:05:00 AM EST [facility] enter Smoking 10/15/2019 Denies Ever completed Denies Ever Smoked [facility] 08:00:00 AM EST [facility] enter Smoking 10/08/2019 Denies Ever completed Denies Ever Smoked [facility] 01:33:00 AM EST [facility] enter Smoking 10/08/2019 Denies Ever completed Denies Ever Smoked [facility] 01:28:00 AM EST [facility] enter Smoking 10/08/2019 Denies Ever completed Denies Ever Smoked [facility] 01:15:00 AM EST [facility] enter Smoking 09/23/2019 Denies Ever completed Denies Ever Smoked [facility] 02:11:00 AM EDT Smoked Medical C enter Smoking 09/23/2019 Denies Ever completed Denies Ever Smoked [facility] 02:10:00 AM EDT Smoked Medical C enter Smoking 09/23/2019 Denies Ever completed Denies Ever Smoked [facility] 02:05:00 AM EDT Smoked Medical C enter Smoking 09/22/2019 Denies Ever completed Denies Ever Smoked [facility] 04:39:00 AM EDT Smoked Medical C enter Smoking 09/22/2019 Denies Ever completed Denies Ever Smoked [facility] 04:37:00 AM EDT Smoked Medical C enter Smoking 09/14/2019 Denies Ever completed Denies Ever Smoked [facility] 02:30:00 PM [facility] Sm[facility] 09/14/2019 Denies Ever completed Denies Ever Smoked [facility] 02:15:00 PM [facility] Smoking 09/14/2019 Denies Ever completed Denies Ever Smoked [facility] 02:14:00 PM [facility] enter Smoking 09/12/2019 Denies Ever completed Denies Ever Smoked [facility] 04:17:00 PM [facility] enter Smoking 09/12/2019 Denies Ever completed Denies Ever Smoked [facility] 04:06:00 PM [facility] Smoking 09/08/2019 Denies Ever completed Denies Ever Smoked [facility] 12:12:00 AM [facility]T [facility] enter Smoking 09/08/2019 Denies Ever completed Denies Ever Smoked [facility] 12:10:00 AM [facility] Smoking 09/04/2019 Denies Ever completed Denies Ever Smoked [facility] 05:20:00 AM [facility]T [facility] enter Smoking 09/04/2019 Denies Ever completed Denies Ever Smoked [facility] 03:30:00 AM [facility] enter Smoking 09/04/2019 Denies Ever completed Denies Ever Smoked [facility] 03:10:00 AM [facility] enter Smoking 08/25/2019 Denies Ever completed Denies Ever Smoked [facility] 05:41:00 AM [facility] enter Smoking 08/25/2019 Denies Ever completed Denies Ever Smoked [facility] 03:31:00 AM [facility] enter Smoking 08/25/2019 Denies Ever completed Denies Ever Smoked [facility] 03:25:00 AM [facility] enter Smoking 08/19/2019 Denies Ever completed Denies Ever Smoked [facility] 10:00:00 PM [facility] enter Smoking 08/19/2019 Denies Ever completed Denies Ever Smoked [facility] 09:55:00 PM [facility] enter Smoking 08/19/2019 Denies Ever completed Denies Ever Smoked [facility] 09:45:00 PM [facility] enter Smoking 08/19/2019 Denies Ever completed Denies Ever Smoked [facility] 03:39:00 AM [facility]T [facility] enter Smoking 08/19/2019 Denies Ever completed Denies Ever Smoked [facility] 12:13:00 AM [facility] enter Smoking 08/18/2019 Denies Ever completed Denies Ever Smoked [facility] 11:56:00 PM [facility]T [facility] enter Smoking 08/07/2019 Denies Ever completed Denies Ever Smoked [facility] 07:54:00 PM [facility]T [facility] enter Smoking 08/07/2019 Denies Ever completed Denies Ever Smoked [facility] 07:10:00 PM [facility] enter Smoking 08/07/2019 Denies Ever completed Denies Ever Smoked [facility] 07:07:00 PM [facility]T [facility] enter Smoking 08/06/2019 Denies Ever completed Denies Ever Smoked [facility] 08:18:00 AM [facility] enter Smoking 08/06/2019 Denies Ever completed Denies Ever Smoked [facility] 08:13:00 AM [facility] enter Smoking 08/06/2019 Denies Ever completed Denies Ever Smoked [facility] 07:56:00 AM [facility]T [facility] enter Smoking 08/05/2019 Denies Ever completed Denies Ever Smoked [facility] 11:39:00 PM [facility] enter Smoking 08/05/2019 Denies Ever completed Denies Ever Smoked [facility] 11:36:00 PM [facility] enter Smoking 08/05/2019 Denies Ever completed Denies Ever Smoked [facility] 11:32:00 PM [facility] enter Smoking 04/23/2019 Denies Ever completed Denies Ever Smoked [facility] 06:41:00 PM [facility] enter Smoking 04/23/2019 Denies Ever completed Denies Ever Smoked [facility] 06:00:00 PM [facility]T [facility] enter Smoking 04/23/2019 Denies Ever completed Denies Ever Smoked [facility] 05:53:00 PM [facility] enter Smoking 04/22/2019 Denies Ever completed Denies Ever Smoked [facility] 03:30:00 AM [facility] enter Smoking 04/21/2019 Denies Ever completed Denies Ever Smoked [facility] 08:46:00 PM [facility] enter Smoking 04/21/2019 Denies Ever completed Denies Ever Smoked [facility] 05:30:00 PM [facility] enter Smoking 04/21/2019 Denies Ever completed Denies Ever Smoked [facility] 02:12:00 PM [facility] enter Smoking 04/21/2019 Denies Ever completed Denies Ever Smoked [facility] 12:45:00 PM [facility] enter Smoking 11/20/2018 Denies Ever completed Denies Ever Smoked [facility] 03:24:00 PM EST [facility] Smoking 11/20/2018 Denies Ever completed Denies Ever Smoked [facility] 03:16:00 PM EST [facility] Smoking 11/20/2018 Denies Ever completed Denies Ever Smoked [facility] 02:32:00 PM EST [facility] Smoking Never smoker completed Never smoker [facility] Vital Signs ID Date Data Source UNK Name Value Range Interpretation Code Description Data Source(s) Body temperature 36.792217 36.391446 [facility] Respiratory rate 18 /min 18 /min [facility] Oxygen saturation 99 % 99 % [facility] Arterial blood [facility] by Pulse oximetry Heart rate 71 /min 71 /min [facility] Diastolic blood 70 mm[Hg] 70 mm[Hg] [facility] Systolic blood 139 mm[Hg] 139 mm[Hg] [facility] Body temperature 36.919257 36.749041 [facility] Respiratory rate 17 /min 17 /min [facility] Oxygen saturation 98 % 98 % [facility] Arterial blood [facility] by Pulse oximetry Heart rate 74 /min 74 /min [facility] Diastolic blood 66 mm[Hg] 66 mm[Hg] [facility] Systolic blood 144 mm[Hg] 144 mm[Hg] [facility] Body temperature 36.395169 36.306709 [facility] Respiratory rate 17 /min 17 /min [facility] Oxygen saturation 98 % 98 % [facility] blood [facility] by Pulse oximetry Heart rate 93 /min 93 /min [facility] Diastolic blood 88 mm[Hg] 88 mm[Hg] [facility] Systolic blood 135 mm[Hg] 135 mm[Hg] [facility] Body temperature 36.677127 36.972458 [facility] Respiratory rate 17 /min 17 /min [facility] Oxygen saturation 100 % 100 % [facility] blood [facility] by Pulse oximetry Heart rate 110 /min 110 /min [facility] Diastolic blood 96 mm[Hg] 96 mm[Hg] [facility] Systolic blood 151 mm[Hg] 151 mm[Hg] [facility] Body temperature 36.640979 36.885970 [facility] Respiratory rate 19 /min 19 /min [facility] Oxygen saturation 99 % 99 % [facility] Arterial blood [facility] by Pulse oximetry Heart rate 64 /min 64 /min [facility] Diastolic blood 55 mm[Hg] 55 mm[Hg] [facility] pressure [facility] Systolic blood 113 mm[Hg] 113 mm[Hg] [facility] Body temperature 36.762714 36.880519 [facility] Respiratory rate 17 /min 17 /min [facility] Oxygen saturation 98 % 98 % [facility] Arterial blood [facility] by Pulse oximetry Heart rate 101 /min 101 /min [facility] Diastolic blood 82 mm[Hg] 82 mm[Hg] [facility] Systolic blood 119 mm[Hg] 119 mm[Hg] [facility] Body temperature 36.862875 36.084743 [facility] Respiratory rate 17 /min 17 /min [facility] Oxygen saturation 98 % 98 % [facility] Arterial blood [facility] by Pulse oximetry Heart rate 90 /min 90 /min [facility] Diastolic blood 73 mm[Hg] 73 mm[Hg] [facility] Systolic blood 127 mm[Hg] 127 mm[Hg] [facility] Body temperature 36.746034 36.709519 [facility] Respiratory rate 18 /min 18 /min [facility] Oxygen saturation 98 % 98 % [facility] Arterial blood [facility] by Pulse oximetry Heart rate 105 /min 105 /min [facility] Diastolic blood 85 mm[Hg] 85 mm[Hg] [facility] [place] Systolic blood 130 mm[Hg] 130 mm[Hg] [facility] Respiratory rate 17 /min 17 /min [facility] Oxygen saturation 100 % 100 % [facility] Arterial blood [facility] by Pulse oximetry Heart rate 79 /min 79 /min [facility] Diastolic blood 79 mm[Hg] 79 mm[Hg] [facility] Systolic blood 157 mm[Hg] 157 mm[Hg] [facility] Body temperature 36.293884 36.343399 [facility] Respiratory rate 17 /min 17 /min [facility] Oxygen saturation 97 % 97 % [facility] Arterial blood [facility] by Pulse oximetry Heart rate 104 /min 104 /min [facility] Diastolic blood 97 mm[Hg] 97 mm[Hg] [facility] Systolic blood 137 mm[Hg] 137 mm[Hg] [facility] Body weight 60.948682 60.714505 kg [facility] Measured kg [facility] Body temperature 36.187069 36.880373 [facility] Respiratory rate 17 /min 17 /min [facility] Oxygen saturation 99 % 99 % [facility] Arterial blood [facility] by Pulse oximetry Heart rate 94 /min 94 /min [facility] Body height 157.256477 157.785817 cm [facility] Diastolic blood 94 mm[Hg] 94 mm[Hg] [facility] Systolic blood 142 mm[Hg] 142 mm[Hg] [facility] Body mass index 24.1 kg/m2 24.1 kg/m2 [facility] (BMI) [Ratio] [facility] Body temperature 36.857219 36.203363 [facility] Respiratory rate 418 /min 418 /min [facility] Oxygen saturation 99 % 99 % [facility] Arterial blood [facility] by Pulse oximetry Heart rate 103 /min 103 /min [facility] Diastolic blood 68 mm[Hg] 68 mm[Hg] [facility] Systolic blood 124 mm[Hg] 124 mm[Hg] [facility] Body temperature 36.475673 36.372910 [facility] Respiratory rate 17 /min 17 /min [facility] Oxygen saturation 99 % 99 % [facility] Arterial blood [facility] by Pulse oximetry Heart rate 118 /min 118 /min [facility] Diastolic blood 75 mm[Hg] 75 mm[Hg] [facility] Systolic blood 132 mm[Hg] 132 mm[Hg] [facility] Body temperature 36.402656 36.127242 [facility] Respiratory rate 17 /min 17 /min [facility] Oxygen saturation 98 % 98 % [facility] blood [facility] by Pulse oximetry Heart rate 75 /min 75 /min [facility] Diastolic blood 65 mm[Hg] 65 mm[Hg] [facility] pressure [facility] Systolic blood 129 mm[Hg] 129 mm[Hg] [facility] Body temperature 37.204394 37.987549 [facility] Respiratory rate 16 /min 16 /min [facility] Oxygen saturation 99 % 99 % [facility] Arterial blood [facility] by Pulse oximetry Heart rate 112 /min 112 /min [facility] Diastolic blood 84 mm[Hg] 84 mm[Hg] [facility] Systolic blood 125 mm[Hg] 125 mm[Hg] [facility] Body weight 49.137757 49.025598 kg [facility] Measured kg [facility] Body temperature 36.132683 36.801341 [facility] Respiratory rate 16 /min 16 /min [facility] Oxygen saturation 99 % 99 % [facility] blood [facility] by Pulse oximetry Heart rate 108 /min 108 /min [facility] Body height 160.152178 160.636446 cm [facility] Diastolic blood 79 mm[Hg] 79 mm[Hg] [facility] Systolic blood 116 mm[Hg] 116 mm[Hg] [facility] Body mass index 19.4 kg/m2 19.4 kg/m2 [facility] (BMI) [Ratio] [facility] ter Body temperature 36.370429 36.983004 [facility] Respiratory rate 18 /min 18 /min [facility] Oxygen saturation 98 % 98 % [facility] by Pulse oximetry Heart rate 79 /min 79 /min [facility] Diastolic blood 79 mm[Hg] 79 mm[Hg] [facility] pressure [facility] Systolic blood 122 mm[Hg] 122 mm[Hg] [facility] Body temperature 36.819994 36.724893 [facility] Respiratory rate 18 /min 18 /min [facility] Oxygen saturation 99 % 99 % [facility] Arterial blood [facility] by Pulse oximetry Heart rate 80 /min 80 /min [facility] Diastolic blood 80 mm[Hg] 80 mm[Hg] [facility] pressure [facility] Systolic blood 122 mm[Hg] 122 mm[Hg] [facility] Body temperature 37.918209 37.420656 [facility] Respiratory rate 19 /min 19 /min [facility] Oxygen saturation 98 % 98 % [facility] Arterial blood [facility] by Pulse oximetry Heart rate 122 /min 122 /min [facility] Diastolic blood 78 mm[Hg] 78 mm[Hg] [facility] pressure [facility] [place] Systolic blood 135 mm[Hg] 135 mm[Hg] [facility] Body temperature 36.814669 36.735886 [facility] Respiratory rate 17 /min 17 /min [facility] Oxygen saturation 100 % 100 % [facility] Arterial blood [facility] by Pulse oximetry Heart rate 100 /min 100 /min [facility] Diastolic blood 64 mm[Hg] 64 mm[Hg] [facility] Systolic blood 102 mm[Hg] 102 mm[Hg] [facility] Body temperature 36.741177 36.763150 [facility] Respiratory rate 17 /min 17 /min [facility] Oxygen saturation 98 % 98 % [facility] blood [facility] by Pulse oximetry Heart rate 75 /min 75 /min [facility] Diastolic blood 69 mm[Hg] 69 mm[Hg] [facility] Systolic blood 128 mm[Hg] 128 mm[Hg] [facility] Body temperature 36.033205 36.665299 [facility] Respiratory rate 18 /min 18 /min [facility] Oxygen saturation 100 % 100 % [facility] Arterial blood [facility] by Pulse oximetry Heart rate 117 /min 117 /min [facility] Diastolic blood 73 mm[Hg] 73 mm[Hg] [facility] Systolic blood 107 mm[Hg] 107 mm[Hg] [facility] [place] Body temperature 36.454273 36.557724 [facility] Respiratory rate 18 /min 18 /min [facility] Oxygen saturation 97 % 97 % [facility] Arterial blood [facility] Center by Pulse oximetry Heart rate 78 /min 78 /min [facility] Diastolic blood 78 mm[Hg] 78 mm[Hg] [facility] pressure [facility] Systolic blood 110 mm[Hg] 110 mm[Hg] [facility] Body temperature 36.632746 36.336372 [facility] Respiratory rate 18 /min 18 /min [facility] Oxygen saturation 98 % 98 % [facility] Arterial blood [facility] by Pulse oximetry Heart rate 98 /min 98 /min [facility] Diastolic blood 69 mm[Hg] 69 mm[Hg] [facility] Systolic blood 108 mm[Hg] 108 mm[Hg] [facility] Body weight 60.514722 60.187381 kg [facility] Measured kg [facility] Body temperature 36.585010 36.939630 [facility] Respiratory rate 16 /min 16 /min [facility] Oxygen saturation 98 % 98 % [facility] blood [facility] by Pulse oximetry Heart rate 112 /min 112 /min [facility] Body height 162.855085 162.024779 cm [facility] [place] Diastolic blood 84 mm[Hg] 84 mm[Hg] [facility] Systolic blood 127 mm[Hg] 127 mm[Hg] [facility] Body mass index 22.8 kg/m2 22.8 kg/m2 [facility] (BMI) [Ratio] [facility] Body temperature 36.553903 36.928529 [facility] Respiratory rate 17 /min 17 /min [facility] Oxygen saturation 99 % 99 % [facility] blood [facility] by Pulse oximetry Heart rate 116 /min 116 /min [facility] Diastolic blood 79 mm[Hg] 79 mm[Hg] [facility] pressure [facility] Systolic blood 143 mm[Hg] 143 mm[Hg] [facility] Body temperature 36.262949 36.697132 [facility] Respiratory rate 17 /min 17 /min [facility] Oxygen saturation 99 % 99 % [facility] Arterial blood [facility] by Pulse oximetry Heart rate 69 /min 69 /min [facility] Diastolic blood 71 mm[Hg] 71 mm[Hg] [facility] pressure [facility] [place] Systolic blood 126 mm[Hg] 126 mm[Hg] [facility] Body temperature 37.812849 37.200892 [facility] Respiratory rate 18 /min 18 /min [facility] Oxygen saturation 100 % 100 % [facility] Arterial blood [facility] by Pulse oximetry Heart rate 67 /min 67 /min [facility] Diastolic blood 87 mm[Hg] 87 mm[Hg] [facility] [place] Systolic blood 131 mm[Hg] 131 mm[Hg] [facility] Body temperature 36.767829 36.810215 [facility] Respiratory rate 17 /min 17 /min [facility] Oxygen saturation 99 % 99 % [facility] blood [facility] Center by Pulse oximetry Heart rate 78 /min 78 /min [facility] Diastolic blood 78 mm[Hg] 78 mm[Hg] [facility] Systolic blood 122 mm[Hg] 122 mm[Hg] [facility] Body temperature 36.049026 36.470887 [facility] Respiratory rate 17 /min 17 /min [facility] Oxygen saturation 99 % 99 % [facility] blood [facility] by Pulse oximetry Heart rate 89 /min 89 /min [facility] Diastolic blood 78 mm[Hg] 78 mm[Hg] [facility] Systolic blood 123 mm[Hg] 123 mm[Hg] [facility] Body temperature 37.486253 37.352571 [facility] Respiratory rate 19 /min 19 /min [facility] Oxygen saturation 96 % 96 % [facility] Arterial blood [facility] by Pulse oximetry Heart rate 94 /min 94 /min [facility] Diastolic blood 82 mm[Hg] 82 mm[Hg] [facility] Systolic blood 127 mm[Hg] 127 mm[Hg] [facility] Body temperature 36.083879 36.426795 [facility] Respiratory rate 18 /min 18 /min [facility] Oxygen saturation 98 % 98 % [facility] Arterial blood [facility] by Pulse oximetry Heart rate 70 /min 70 /min [facility] Diastolic blood 62 mm[Hg] 62 mm[Hg] [facility] [place] Systolic blood 121 mm[Hg] 121 mm[Hg] [facility] Body temperature 36.834572 36.857915 [facility] Respiratory rate 19 /min 19 /min [facility] Oxygen saturation 99 % 99 % [facility] Arterial blood [facility] Center by Pulse oximetry Heart rate 64 /min 64 /min [facility] Diastolic blood 67 mm[Hg] 67 mm[Hg] [facility] Systolic blood 116 mm[Hg] 116 mm[Hg] [facility] Body temperature 36.887776 36.332069 [facility] Respiratory rate 18 /min 18 /min [facility] Oxygen saturation 99 % 99 % [facility] Arterial blood [facility] by Pulse oximetry Heart rate 69 /min 69 /min [facility] Diastolic blood 70 mm[Hg] 70 mm[Hg] [facility] Systolic blood 114 mm[Hg] 114 mm[Hg] [facility] Body temperature 36.040047 36.837705 [facility] Respiratory rate 17 /min 17 /min [facility] Oxygen saturation 98 % 98 % [facility] blood [facility] by Pulse oximetry Heart rate 108 /min 108 /min [facility] Diastolic blood 105 mm[Hg] 105 mm[Hg] [facility] Systolic blood 149 mm[Hg] 149 mm[Hg] [facility] Body temperature 36.575438 36.115523 [facility] Respiratory rate 18 /min 18 /min [facility] Heart rate 112 /min 112 /min [facility] Diastolic blood 65 mm[Hg] 65 mm[Hg] [facility] Systolic blood 98 mm[Hg] 98 mm[Hg] [facility] Body temperature 36.178342 36.891089 [facility] Respiratory rate 18 /min 18 /min [facility] Oxygen saturation 99 % 99 % [facility] Arterial blood [facility] by Pulse oximetry Heart rate 139 /min 139 /min [facility] Diastolic blood 71 mm[Hg] 71 mm[Hg] [facility] [place] Systolic blood 106 mm[Hg] 106 mm[Hg] [facility] Body temperature 36.370575 36.441238 [facility] Respiratory rate 16 /min 16 /min [facility] Heart rate 69 /min 69 /min [facility] Diastolic blood 57 mm[Hg] 57 mm[Hg] [facility] Systolic blood 95 mm[Hg] 95 mm[Hg] [facility] Body weight 53.401616 53.768279 kg [facility] Measured kg [facility] Oxygen saturation 99 % 99 % [facility] osephs in Arterial blood [facility] Center by Pulse oximetry Body height 162.676889 162.114766 cm [facility] Body mass index 20.25 kg/m2 20.25 kg/m2 [facility] osep (BMI) [Ratio] [facility] ter Body temperature 36.895420 36.655659 [facility] Respiratory rate 18 /min 18 /min [facility] Heart rate 76 /min 76 /min [facility] Diastolic blood 60 mm[Hg] 60 mm[Hg] [facility] Systolic blood 100 mm[Hg] 100 mm[Hg] [facility] Body weight 53.821060 53.594409 kg [facility] Measured kg [facility] Body height 162.472908 162.845219 cm [facility] Body mass index 20.25 kg/m2 20.25 kg/m2 [facility] osephs (BMI) [Ratio] [facility] ter Body temperature 36.288968 36.040983 [facility] Respiratory rate 18 /min 18 /min [facility] Heart rate 80 /min 80 /min [facility] Diastolic blood 56 mm[Hg] 56 mm[Hg] [facility] Systolic blood 99 mm[Hg] 99 mm[Hg] [facility] Body weight 53.558480 53.636698 kg [facility] Measured kg [facility] Oxygen saturation 98 % 98 % [facility] Flory garzaep in [facility] blood [facility] by Pulse oximetry Body height 162.398852 162.083632 cm [facility] Body mass index 20.25 kg/m2 20.25 kg/m2 [facility] osep (BMI) [Ratio] [facility] Body temperature 36.433526 36.284434 [facility] Respiratory rate 16 /min 16 /min [facility] Heart rate 86 /min 86 /min [facility] Diastolic blood 58 mm[Hg] 58 mm[Hg] [facility] Systolic blood 99 mm[Hg] 99 mm[Hg] [facility] Body temperature 36.511627 36.835801 [facility] Respiratory rate 20 /min 20 /min [facility] Heart rate 72 /min 72 /min [facility] Diastolic blood 70 mm[Hg] 70 mm[Hg] [facility] Systolic blood 100 mm[Hg] 100 mm[Hg] [facility] Body weight 53.891372 53.869118 kg [facility] Measured kg [facility] Body height 162.291353 162.695395 cm [facility] Body mass index 20.25 kg/m2 20.25 kg/m2 [facility] (BMI) [Ratio] [facility] ter Body temperature 37.607743 37.206583 [facility] Body temperature 37.780253 37.535169 [facility] Respiratory rate 18 /min 18 /min [facility] Respiratory rate 18 /min 18 /min [facility] Heart rate 94 /min 94 /min [facility] Heart rate 79 /min 79 /min [facility] Diastolic blood 77 mm[Hg] 77 mm[Hg] [facility] Systolic blood 114 mm[Hg] 114 mm[Hg] [facility] Diastolic blood 72 mm[Hg] 72 mm[Hg] [facility] Systolic blood 122 mm[Hg] 122 mm[Hg] [facility] Body temperature 37.853687 37.107938 [facility] Respiratory rate 18 /min 18 /min [facility] Heart rate 80 /min 80 /min [facility] Diastolic blood 79 mm[Hg] 79 mm[Hg] [facility] pressure [facility] Systolic blood 121 mm[Hg] 121 mm[Hg] [facility] Body weight 53.642396 53.908146 kg [facility] [place] Measured kg [facility] Oxygen saturation 100 % 100 % [facility] Flory osephs in Arterial blood [facility] Center by Pulse oximetry Body height 162.542179 162.476675 cm [facility] Body mass index 20.4 kg/m2 20.4 kg/m2 [facility] (BMI) [Ratio] [facility] Body temperature 37.182604 37.674711 [facility] Respiratory rate 16 /min 16 /min [facility] Heart rate 82 /min 82 /min [facility] Diastolic blood 82 mm[Hg] 82 mm[Hg] [facility] pressure [facility] Systolic blood 124 mm[Hg] 124 mm[Hg] [facility] Heart rate 82.0000 {} Normal (applies to 82.0000 {} [facility] non-numeric results) [facility] Body temperature 99.0000 {} Normal (applies to 99.0000 {} [facility] non-numeric results) [facility] Diastolic blood 77 {} Normal (applies to 77 {} [place] pressure non-numeric results) [facility] Systolic blood 98 {} Normal (applies to 98 {} [place] pressure non-numeric results) [facility] First Respiration 19.0000 {} Normal (applies to 19.0000 {} [facility] rate Set non-numeric results) [facility] wt - obtain Normal (applies to {} [facility] non-numeric results) [facility] weight - kg 55.0000 {} Normal (applies to 55.0000 {} [facility] non-numeric results) [facility] Body weight 49.828892 49.668004 kg [facility] [place] Measured kg [facility] Body temperature 37.236631 37.099506 [facility] Respiratory rate 17 /min 17 /min [facility] Oxygen saturation 97 % 97 % [facility] [place]ph[facility] in Arterial blood [facility] by Pulse oximetry Heart rate 90 /min 90 /min [facility] Body height 162.839468 162.232373 cm [facility] Diastolic blood 74 mm[Hg] 74 mm[Hg] [facility] pressure [facility] Systolic blood 110 mm[Hg] 110 mm[Hg] [facility] pressure [facility] Body mass index 18.8 kg/m2 18.8 kg/m2 [facility] (BMI) [Ratio] [facility] Patient Treatment Plan of Care Planned Activity Planned Date Details Description Data Source (s) oxcarbazepine 300 MG Oral Sa [facility] Ibuprofen 600 MG Oral Tablet [facility] oxcarbazepine 300 MG Oral Sa [facility] topiramate 25 MG Oral Tablet [facility] oxcarbazepine 300 MG Oral Sa [facility]
--- NOTE | 2020-08-23 05:14 | PDOC ---
Attending Attestation - Resident Resident Name: Fermin Dubose - ED Attending Attestation I have performed the following: I have examined & evaluated the patient, The case was reviewed & discussed with the resident, I agree w/resident's findings & plan, Exceptions are as noted - HPI HPI: 08/29/20 20:13 See resident HPI - Physicial Exam PE: 08/29/20 20:13 Agree with documented exam - Medical Decision Making 08/29/20 20:13 35F hx of seizure disorder, irregular compliance on AED, here stating she was feeling her typical aura pre-seizure give dose of current aed f/u labs, ekg dispo per clinical course likely dc with routine pcp and neuro follow up Discharge - Discharge Information Problems reviewed: Yes Clinical Impression/Diagnosis: Pseudoseizure, Anxiety Condition: Good Disposition: HOME - Follow up/Referral Referrals: Zeferino Villarreal MD [Staff Physician] - Pauline Ku MD [Primary Care Provider] - - Patient Discharge Instructions Patient Printed Discharge Instructions: DI for Psychogenic Nonepileptic Seizures Additional Instructions: You were seen in the ED for complaints of numbness and anxiety In the ED you were evaluated with bloodwork and physical exam. Your results were negative There does not appear to be an acute need for immediate hospitalization. You are advised to follow up with your Primary Care Physician and neurologist within 1 week. You were given a referral to see a neurologist Please continue to take your trileptal medication. Return to the ED immediately if you experience worsening headache, seizure, or new symptoms. - Post Discharge Activity
[2020-08-23 06:01] LABS: EOS % 1.8 % (0-4.5); HEMATOCRIT 27.7 % (32.4-45.2); HEMOGLOBIN 8.7 GM/dL (10.7-15.3); LYMPH % 37.1 % (8-40); MCH 25.9 pg (25.7-33.7); MCHC 31.2 g/dl (32.0-36.0); MEAN PLT VOLUME 8.8 fl (7.5-11.1); MONO % 8.3 % (3.8-10.2); NEUT % 51.8 % (42.8-82.8); PLATELET COUNT 250 K/MM3 (134-434); RBC 3.34 M/mm3 (3.60-5.2); RDW 21.2 % (11.6-15.6); WHITE BLOOD COUNT 4.3 K/mm3 (4.0-10.0)
[2020-08-23 06:40] LABS: ALBUMIN 3.8 g/dl (3.4-5.0); BLOOD UREA NITROGEN 9.1 mg/dL (7-18); CALCIUM 9.2 mg/dL (8.5-10.1); CREATININE 0.7 mg/dL (0.55-1.3); POTASSIUM 3.8 mmol/L (3.5-5.1); TOT PROT 8.2 g/dl (6.4-8.2)
[2020-08-23 06:50] LABS: BILIRUBIN,TOTAL 0.1 mg/dL (0.2-1)
[2020-08-23 08:38] VITALS: BP 119/74; PULSE 72; TEMP 98.6
--- NOTE | 2020-08-23 10:34 | EKG ---
Test Reason : Blood Pressure : / mmHG Vent. Rate : 079 BPM Atrial Rate : 079 BPM P-R Int : 154 ms QRS Dur : 074 ms QT Int : 354 ms P-R-T Axes : -09 078 059 degrees QTc Int : 405 ms SINUS RHYTHM WITH PREMATURE SUPRAVENTRICULAR COMPLEXES WHEN COMPARED WITH ECG OF 19-JUN-2016 15:58, PREMATURE SUPRAVENTRICULAR COMPLEXES ARE NOW PRESENT Confirmed by TIA MIN MD ([id number]) on 08/23/2020 10:34:43 AM Referred By: Confirmed By:TIA MIN MD
== END 2020-08-23 08:38 | disposition home or self-care (01) ==
LOC: JER 04:11
DX: R56.9 Unspecified convulsions (principal); F41.9 Anxiety disorder, unspecified
CPT/HCPCS: 36415; 80053; 83735; 84703; 85025; 93005; 93010; 99284-25